=== PATIENT | male | born 1940 | race African-American/Black ===

== ENCOUNTER 2018-05-10 09:54 | Inpatient (IN) ==
--- NOTE | 2018-05-10 11:57 | ED ---
HPI General Chief complaint: Recheck/Abnormal Lab/Rx Stated complaint: sent by doctor/Back pain/abnormal labs Time Seen by Provider: 05/10/18 11:41 History of Present Illness HPI narrative: 78-year-old male with a history of hypertension, hyperlipidemia, chronic kidney disease, CAD, CVA, diabetes, mild dementia presents to the emergency department for evaluation of abnormal results and back pain. The patient is brought by his daughters who provide some of the history due to the patient's history of dementia. The patient states that he went to his doctor's office this morning as he has been having lower back pain radiating to the left for the past week. Denies any injury or trauma to his back. States that he has also been feeling "not like myself" states he has been forgetting things and feeling slightly confused. States that when he went to his doctor's office this morning his blood pressure was very elevated as well as his blood glucose and his urinalysis was abnormal so they sent him here for evaluation. The patient states while sitting in our waiting room about an hour ago he started having weakness in the right leg and decreased sensation in the right leg. States that these are similar symptoms that happened with his prior stroke. He denies any anticoagulation. He denies any chest pain, shortness of breath, abdominal pain, nausea, vomiting, diarrhea, fever, chills, cough or cold symptoms. He admits he has not taken his blood pressure medications this morning and has not taken his insulin for the last week. No other complaints. PCP Bhavya BARROW. Related Data Home Medications Medication Instructions Recorded Confirmed amlodipine 10 mg PO DAILY 05/10/18 05/10/18 atorvastatin 20 mg PO DAILY 05/10/18 05/10/18 clonidine HCl 0.5 tab PO DAILY 05/10/18 05/10/18 insulin glargine [Lantus U-100 40 unit SUBCUT HS 05/10/18 05/10/18 Insulin] loratadine 10 mg PO DAILY 05/10/18 05/10/18 losartan-hydrochlorothiazide 1 tab PO HS 05/10/18 05/10/18 memantine [Namenda] 10 mg PO DAILY 05/10/18 05/10/18 metoprolol tartrate 100 mg PO BID 05/10/18 05/10/18 sitagliptin [Januvia] 100 mg PO DAILY 05/10/18 05/10/18 Allergies Allergy/AdvReac Type Severity Reaction Status Date / Time No Known Allergies Allergy Verified 05/10/18 11:40 Review of Systems ROS: all other systems reviewed are negative PMFSH Social History Social History Second Hand Smoke Exposure: No Smoking Status: Never smoker How Often Do You Have a Drink Containing Alcohol: Never Recent [facility] within the Last 8 Weeks: No Recent Out of Country Travel within the Last 8 Weeks: No Immunization History Tetanus Immunization: Unsure Exam Narrative Exam Narrative: GENERAL: Well-nourished and well-developed male patient in no acute distress who is nontoxic appearing. SKIN: Warm and dry without any obvious rashes or lesions. HEAD: Normocephalic and atraumatic. EYES: No injection, drainage, or hyphema noted. PERRLA. EOMI. ENT: No nasal drainage noted. Oropharynx is clear. NECK: Supple and the trachea is midline. CARDIOVASCULAR: Regular rate and rhythm. RESPIRATORY: Breath sounds are equal bilaterally with no accessory muscle use, wheezing, rhonchi, or crackles. GASTROINTESTINAL: Abdomen is soft, non-tender, and nondistended. MUSCULOSKELETAL: No obvious deformities, swelling, cyanosis, or ecchymosis is present throughout the upper and lower extremities. Distal pulses are 2+ throughout. Patient is unable to lift right leg. When right leg is lifted up he can hold it for a few seconds however it then drops. Strength left leg 5/5. Strength upper extremities 5/5 and equal bilaterally. BACK: Patient reports pain in mid lumbar spine and left paraspinal region however not reproducible on palpation. No obvious deformities, bony point tenderness, or crepitus noted throughout the thoracic and lumbar vertebrae. NEUROLOGICAL: Awake, alert, and oriented to person and place. Patient does not know the year or the president. Normal speech. Cranial nerves are grossly intact. Course Initial Documented Vital Signs Temperature 97.6 F 05/10/18 10:14 Pulse Rate 76 05/10/18 10:14 Respiratory Rate 16 05/10/18 10:14 Blood Pressure 252/119 H 05/10/18 10:14 Pulse Oximetry 98 05/10/18 10:14 Last Documented Vital Signs Temperature 97.6 F 05/10/18 10:14 Pulse Rate 82 05/10/18 19:00 Respiratory Rate 18 05/10/18 19:00 Blood Pressure 135/61 05/10/18 19:00 Pulse Oximetry 99 05/10/18 19:00 NIH Stroke Scale NIH Stroke Scale Level of Consciousness: 0-Alert Orientation Questions: 0-Answers both correct Responds to Commands: 0-Both tasks correct Gaze Eye Movement: 0-Horizontal movement WNL Visual Beckham: 0-No visual field defect Facial Movement: 0-Normal Motor Functions Arm LEFT: 0-No drift Motor Functions Arm RIGHT: 0-No drift Motor Functions Leg LEFT: 0-No drift Motor Functions Leg RIGHT: 3-No effort against gravity Limb Ataxia: 1-Ataxia in one limb Sensory Loss: 2-Severe sensory loss Best Language: 0-Normal Articulation: 0-Normal Extinction or Inattention Sensory: 0-Absent Total: 6 Medical Decision Making MAYANK Attestation MAYANK supervised visit: Yes Attestation: I, Dr. Soares, have reviewed the advance practice practitioner' s documentation and am in agreement, met with the patient face to face, made the diagnosis, and the medical decision making was done by me. *My assessment and Findings: The patient is a 78-year-old -[place] male who was initially evaluated by the mid-level provider. The patient was sent to the emergency department by his primary physician for back pain and hematuria. Patient was noted to be hypertensive by the mid-level provider, the patient apparently had an acute episode of right lower extremity weakness and numbness. The patient was evaluated, was unable to lift the right lower extremity against gravity, had decreased sensation, and was unable to move the right heel against the anterior aspect of the left lyles. Stroke alert was called, the mid- level provider, Dominga Guerrero, discussed the patient with the neurologist, Dr. Higgins. The patient had a stroke alert called, the patient went immediately to CT. CT the brain was negative for hemorrhage. CTA was performed. The patient was noted to be hypertensive, was placed on a Cardene drip. The patient was reevaluated, his symptoms had improved, therefore, no TPA was administered. The patient will be admitted to the on-call medical service. MDM Narrative Medical decision making narrative: 78-year-old male presents to the emergency department initially for evaluation of elevated blood pressure and glucose with back pain. While waiting in our emergency department he began to develop right leg weakness and paresthesias. Stroke alert was called and initiated. I spoke with Dr. Higgins at 11:49 who recommends Cardene drip and states BP must be controlled 180/100 prior to consideration of TPA administration. IV access obtained, labs have been drawn and sent. Patient placed on cardiac telemetry and pulse oximetry monitoring. I stat labs done show kidney function is appropriate for CTA. Head CT negative. Head CTA is negative. CBC unremarkable. I stat shows Cr 1.5, sodium 136, chloride 98, glucose 379. Chest x-ray is negative. I spoke with Dr. Higgins at 13:00 and patient's blood pressure is now 184/80. Patient reassessed and he now has full sensation in right leg and strength is 4/ 5 in right leg, 5/5 in left. His strength and sensation has greatly improved in the right leg however is still not equal to the right. I discussed this with Dr. Higgins who agrees we can offer TPA due to continuation of symptoms. I discussed with the patient and his daughters the option of TPA. I discussed with them the risks of bleeding if TPA administered. I discussed with them the risks of continued or worsening stroke symptoms if TPA not administered. Based on risks and benefits the patient and family have elected not to administer TPA. I spoke with Dr. Pearson durable medical equipment technician who accepts patient to Dr. Edwards service. I discussed the case with my attending physician Dr. Soares who is aware of the patients history, physical examination findings, and treatment plan. Medical Screen Exam Complete: Yes Emergency Medical Condition: Yes Differential Diagnosis Differential Diagnosis: CVA versus TIA versus hypertensive urgency versus intracranial hemorrhage versus electrolyte abnormality Lab Data Result diagrams: 05/10/18 11:39 05/10/18 11:39 Lab Results 05/10/18 05/10/18 05/10/18 Range/Units 11:39 11:39 11:39 WBC 6.5 (4.0-11.0) th/mm3 RBC 5.08 (4.50-5.90) mil/mm3 Hgb 15.3 (13.0-17.0) gm/dL POC Hgb (Calc) 15.3 (13.0-17.0) g/dL Hct 45.7 (39.0-51.0) % POC Hct 45.0 (39-51.0) % MCV 89.8 (80.0-100.0) fL MCH 30.2 (27.0-34.0) pg MCHC 33.6 (32.0-36.0) % RDW 13.3 (11.6-17.2) % Plt Count 229 (150-450) th/mm3 MPV 10.5 (7.0-11.0) fL Neut % (Auto) 71.8 H (16.0-70.0) % Lymph % (Auto) 19.5 (9.0-44.0) % [place] % (Auto) 7.2 (0.0-8.0) % Eos % (Auto) 0.8 (0.0-4.0) % Baso % (Auto) 0.7 (0.0-2.0) % Neut # (Auto) 4.7 (1.8-7.7) th/mm3 Lymph # (Auto) 1.3 (1.0-4.8) th/mm3 [place] # (Auto) 0.5 (0.0-0.9) th/mm3 Eos # (Auto) 0.0 (0.0-0.4) th/mm3 Baso # (Auto) 0.0 (0.0-0.2) th/mm3 WBC Differential . Differential Comment Auto diff final PT 10.1 (9.8-11.6) sec INR 1.0 Ratio APTT 23.2 L (23.4-31.7) sec Fibrinogen 410 H (227-377) mg/dL POC Sodium 136 L (137-144) mmol/L Sodium (136-145) meq/L POC Potassium 4.5 (3.6-5.0) mmol/L Potassium (3.5-5.1) meq/L POC Chloride 98 L (102-111) mmol/L Chloride (98-107) meq/L Carbon Dioxide (21.0-32.0) meq/L Anion Gap (5-15) meq/L POC BUN 20 (5-21) mg/dL BUN (7-18) mg/dL Creatinine (0.60-1.30) mg/dL POC Creatinine 1.5 H (0.6-1.3) mg/dL Estimated GFR (>89) mL/min POC Glucose 379 H (68-110) mg/dL Random Glucose (74-106) mg/dL Calcium (8.5-10.1) mg/dL Total Bilirubin (0.2-1.0) mg/dL AST (15-37) U/L ALT (12-78) U/L Alkaline Phosphatase (45-117) U/L Total Creatine Kinase 296 (39-308) U/L Troponin I 0.05 (0.02-0.05) ng/mL Total Protein (6.4-8.2) g/dL Albumin (3.4-5.0) g/dL Triglycerides (42-150) mg/dL Cholesterol (120-200) mg/dL LDL Cholesterol, Calc (0-99) mg/dL HDL Cholesterol (40.0-60.0) mg/dL Cholesterol/HDL Ratio Ratio Vitamin B12 (193-986) pg/mL Urine Color (Yellw/Straw) Urine Clarity (Clear) Urine pH (5.0-8.5) Ur Specific [place] (1.002-1.035) Urine Protein (Neg-Trace) mg/dL Urine Glucose (UA) (Negative) mg/dL Urine Ketones (Negative) mg/dL Urine Occult Blood (Negative) Urine Nitrate (Negative) Urine Bilirubin (Negative) Urine Urobilinogen (Less than 2) mg/dL Ur Leukocyte Esterase (Negative) Urine RBC (0-3) /hpf Urine WBC (0-5) /hpf Ur Squamous Epith Cells (0-5) /hpf Micro UA Comment Ur Microscopic Review Urine Culture Comments Urine Opiates Screen (Neg) Ur Barbiturates Screen (Neg) Ur Amphetamines Screen (Neg) U Benzodiazepines Scrn (Neg) Urine Cocaine Screen (Neg) U Cannabinoids Screen (Neg) Blood Type Blood Type Recheck Antibody Screen 05/10/18 05/10/18 05/10/18 Range/Units 11:39 11:39 11:39 WBC (4.0-11.0) th/mm3 RBC (4.50-5.90) mil/mm3 Hgb (13.0-17.0) gm/dL POC Hgb (Calc) (13.0-17.0) g/dL Hct (39.0-51.0) % POC Hct (39-51.0) % MCV (80.0-100.0) fL MCH (27.0-34.0) pg MCHC (32.0-36.0) % RDW (11.6-17.2) % Plt Count (150-450) th/mm3 MPV (7.0-11.0) fL Neut % (Auto) (16.0-70.0) % Lymph % (Auto) (9.0-44.0) % [place] % (Auto) (0.0-8.0) % Eos % (Auto) (0.0-4.0) % Baso % (Auto) (0.0-2.0) % Neut # (Auto) (1.8-7.7) th/mm3 Lymph # (Auto) (1.0-4.8) th/mm3 [place] # (Auto) (0.0-0.9) th/mm3 Eos # (Auto) (0.0-0.4) th/mm3 Baso # (Auto) (0.0-0.2) th/mm3 WBC Differential Differential Comment PT (9.8-11.6) sec INR Ratio APTT (23.4-31.7) sec Fibrinogen (227-377) mg/dL POC Sodium (137-144) mmol/L Sodium 136 (136-145) meq/L POC Potassium (3.6-5.0) mmol/L Potassium 4.5 (3.5-5.1) meq/L POC Chloride (102-111) mmol/L Chloride 101 (98-107) meq/L Carbon Dioxide 25.4 (21.0-32.0) meq/L Anion Gap 10 (5-15) meq/L POC BUN (5-21) mg/dL BUN 21 H (7-18) mg/dL Creatinine 1.91 H (0.60-1.30) mg/dL POC Creatinine (0.6-1.3) mg/dL Estimated GFR 42 L (>89) mL/min POC Glucose (68-110) mg/dL Random Glucose 370 H (74-106) mg/dL Calcium 9.3 (8.5-10.1) mg/dL Total Bilirubin 0.4 (0.2-1.0) mg/dL AST 26 (15-37) U/L ALT 20 (12-78) U/L Alkaline Phosphatase 136 H (45-117) U/L Total Creatine Kinase (39-308) U/L Troponin I (0.02-0.05) ng/mL Total Protein 7.6 (6.4-8.2) g/dL Albumin 3.4 (3.4-5.0) g/dL Triglycerides (42-150) mg/dL Cholesterol (120-200) mg/dL LDL Cholesterol, Calc (0-99) mg/dL HDL Cholesterol (40.0-60.0) mg/dL Cholesterol/HDL Ratio Ratio Vitamin B12 973 (193-986) pg/mL Urine Color (Yellw/Straw) Urine Clarity (Clear) Urine pH (5.0-8.5) Ur Specific [place] (1.002-1.035) Urine Protein (Neg-Trace) mg/dL Urine Glucose (UA) (Negative) mg/dL Urine Ketones (Negative) mg/dL Urine Occult Blood (Negative) Urine Nitrate (Negative) Urine Bilirubin (Negative) Urine Urobilinogen (Less than 2) mg/dL Ur Leukocyte Esterase (Negative) Urine RBC (0-3) /hpf Urine WBC (0-5) /hpf Ur Squamous Epith Cells (0-5) /hpf Micro UA Comment Ur Microscopic Review Urine Culture Comments Urine Opiates Screen (Neg) Ur Barbiturates Screen (Neg) Ur Amphetamines Screen (Neg) U Benzodiazepines Scrn (Neg) Urine Cocaine Screen (Neg) U Cannabinoids Screen (Neg) Blood Type B Positive Blood Type Recheck Not needed Antibody Screen Negative 05/10/18 05/10/18 05/10/18 Range/Units 11:52 13:32 13:32 WBC (4.0-11.0) th/mm3 RBC (4.50-5.90) mil/mm3 Hgb (13.0-17.0) gm/dL POC Hgb (Calc) (13.0-17.0) g/dL Hct (39.0-51.0) % POC Hct (39-51.0) % MCV (80.0-100.0) fL MCH (27.0-34.0) pg MCHC (32.0-36.0) % RDW (11.6-17.2) % Plt Count (150-450) th/mm3 MPV (7.0-11.0) fL Neut % (Auto) (16.0-70.0) % Lymph % (Auto) (9.0-44.0) % [place] % (Auto) (0.0-8.0) % Eos % (Auto) (0.0-4.0) % Baso % (Auto) (0.0-2.0) % Neut # (Auto) (1.8-7.7) th/mm3 Lymph # (Auto) (1.0-4.8) th/mm3 [place] # (Auto) (0.0-0.9) th/mm3 Eos # (Auto) (0.0-0.4) th/mm3 Baso # (Auto) (0.0-0.2) th/mm3 WBC Differential Differential Comment PT (9.8-11.6) sec INR Ratio APTT (23.4-31.7) sec Fibrinogen (227-377) mg/dL POC Sodium (137-144) mmol/L Sodium (136-145) meq/L POC Potassium (3.6-5.0) mmol/L Potassium (3.5-5.1) meq/L POC Chloride (102-111) mmol/L Chloride (98-107) meq/L Carbon Dioxide (21.0-32.0) meq/L Anion Gap (5-15) meq/L POC BUN (5-21) mg/dL BUN (7-18) mg/dL Creatinine (0.60-1.30) mg/dL POC Creatinine (0.6-1.3) mg/dL Estimated GFR (>89) mL/min POC Glucose 350 H (68-110) mg/dL Random Glucose (74-106) mg/dL Calcium (8.5-10.1) mg/dL Total Bilirubin (0.2-1.0) mg/dL AST (15-37) U/L ALT (12-78) U/L Alkaline Phosphatase (45-117) U/L Total Creatine Kinase (39-308) U/L Troponin I (0.02-0.05) ng/mL Total Protein (6.4-8.2) g/dL Albumin (3.4-5.0) g/dL Triglycerides (42-150) mg/dL Cholesterol (120-200) mg/dL LDL Cholesterol, Calc (0-99) mg/dL HDL Cholesterol (40.0-60.0) mg/dL Cholesterol/HDL Ratio Ratio Vitamin B12 (193-986) pg/mL Urine Color Straw (Yellw/Straw) Urine Clarity Clear (Clear) Urine pH 7.0 (5.0-8.5) Ur Specific [place] 1.029 (1.002-1.035) Urine Protein 500 or greater (Neg-Trace) mg/dL Urine Glucose (UA) 500 or greater (Negative) mg/dL Urine Ketones Trace H (Negative) mg/dL Urine Occult Blood Small H (Negative) Urine Nitrate Negative (Negative) Urine Bilirubin Negative (Negative) Urine Urobilinogen Less than 2 (Less than 2) mg/dL Ur Leukocyte Esterase Negative (Negative) Urine RBC Less than 1 (0-3) /hpf Urine WBC 1 (0-5) /hpf Ur Squamous Epith Cells <1 (0-5) /hpf Micro UA Comment Culture not ind Ur Microscopic Review Not Reportable Urine Culture Comments Culture not ind Urine Opiates Screen Neg (Neg) Ur Barbiturates Screen Neg (Neg) Ur Amphetamines Screen Neg (Neg) U Benzodiazepines Scrn Neg (Neg) Urine Cocaine Screen Neg (Neg) U Cannabinoids Screen Neg (Neg) Blood Type Blood Type Recheck Antibody Screen 05/10/18 05/10/18 05/11/18 Range/Units 18:22 22:54 03:40 WBC (4.0-11.0) th/mm3 RBC (4.50-5.90) mil/mm3 Hgb (13.0-17.0) gm/dL POC Hgb (Calc) (13.0-17.0) g/dL Hct (39.0-51.0) % POC Hct (39-51.0) % MCV (80.0-100.0) fL MCH (27.0-34.0) pg MCHC (32.0-36.0) % RDW (11.6-17.2) % Plt Count (150-450) th/mm3 MPV (7.0-11.0) fL Neut % (Auto) (16.0-70.0) % Lymph % (Auto) (9.0-44.0) % [place] % (Auto) (0.0-8.0) % Eos % (Auto) (0.0-4.0) % Baso % (Auto) (0.0-2.0) % Neut # (Auto) (1.8-7.7) th/mm3 Lymph # (Auto) (1.0-4.8) th/mm3 [place] # (Auto) (0.0-0.9) th/mm3 Eos # (Auto) (0.0-0.4) th/mm3 Baso # (Auto) (0.0-0.2) th/mm3 WBC Differential Differential Comment PT (9.8-11.6) sec INR Ratio APTT (23.4-31.7) sec Fibrinogen (227-377) mg/dL POC Sodium (137-144) mmol/L Sodium (136-145) meq/L POC Potassium (3.6-5.0) mmol/L Potassium (3.5-5.1) meq/L POC Chloride (102-111) mmol/L Chloride (98-107) meq/L Carbon Dioxide (21.0-32.0) meq/L Anion Gap (5-15) meq/L POC BUN (5-21) mg/dL BUN (7-18) mg/dL Creatinine (0.60-1.30) mg/dL POC Creatinine (0.6-1.3) mg/dL Estimated GFR (>89) mL/min POC Glucose 262 H 287 H (68-110) mg/dL Random Glucose (74-106) mg/dL Calcium (8.5-10.1) mg/dL Total Bilirubin (0.2-1.0) mg/dL AST (15-37) U/L ALT (12-78) U/L Alkaline Phosphatase (45-117) U/L Total Creatine Kinase (39-308) U/L Troponin I (0.02-0.05) ng/mL Total Protein (6.4-8.2) g/dL Albumin (3.4-5.0) g/dL Triglycerides 285 H (42-150) mg/dL Cholesterol 346 H (120-200) mg/dL LDL Cholesterol, Calc 247 H (0-99) mg/dL HDL Cholesterol 42.0 (40.0-60.0) mg/dL Cholesterol/HDL Ratio 8.23 Ratio Vitamin B12 (193-986) pg/mL Urine Color (Yellw/Straw) Urine Clarity (Clear) Urine pH (5.0-8.5) Ur Specific [place] (1.002-1.035) Urine Protein (Neg-Trace) mg/dL Urine Glucose (UA) (Negative) mg/dL Urine Ketones (Negative) mg/dL Urine Occult Blood (Negative) Urine Nitrate (Negative) Urine Bilirubin (Negative) Urine Urobilinogen (Less than 2) mg/dL Ur Leukocyte Esterase (Negative) Urine RBC (0-3) /hpf Urine WBC (0-5) /hpf Ur Squamous Epith Cells (0-5) /hpf Micro UA Comment Ur Microscopic Review Urine Culture Comments Urine Opiates Screen (Neg) Ur Barbiturates Screen (Neg) Ur Amphetamines Screen (Neg) U Benzodiazepines Scrn (Neg) Urine Cocaine Screen (Neg) U Cannabinoids Screen (Neg) Blood Type Blood Type Recheck Antibody Screen Imaging Data Radiologist's impression: Chest X-Ray 05/10/18 11:53 CONCLUSION: No acute disease Head CT 05/10/18 11:53 CONCLUSION: Negative CT Head non contrast. Report was called by [Clayton Soares at 1210 ] Head CTA 05/10/18 12:07 CONCLUSION: No acute [place] vascular findings Report was called by [Clayton Guerrero ]at 1228 Neck CTA 05/10/18 12:07 CONCLUSION: Mild asymmetrically left-sided carotid stenosis. Head MRI 05/10/18 16:00 CONCLUSION: 1. Cerebral atrophy and chronic ischemic small vessel vasculopathy. 2. Right frontal and ethmoid sinus disease. 3. No acute intracranial abnormality. Discharge Plan Discharge Disposition Patient Disposition: 30 Still Patient Discharge Details Diagnosis: Acute CVA (cerebrovascular accident), Hypertensive urgency Physicians Team ED Provider: Jose Ramon Soares ED Midlevel Provider: Dominga Guerrero Primary Care Provider: UNKNOWN, Attending Provider: Hollis Edwards Other Providers: Aki Higgins ; [facility],Insurance Status ED Status: Admitted Patient
--- NOTE | 2018-05-10 12:12 | CT ---
EXAM DATE: 05/10/2018 12:06 PM EST AGE/SEX: 78 years / Male INDICATIONS: Stroke alert, right leg weakness. History of stroke. CLINICAL DATA: This is the patient's initial encounter. Patient reports that signs and symptoms have been present for 1 day and indicates a pain score of Nonresponsive. MEDICAL/SURGICAL HISTORY: Non-responsive. Non-responsive. RADIATION DOSE: 48.25 CTDI (mGy) COMPARISON: [facility], CT BRAIN W/O CONTRAST, 10/11/2015. . TECHNIQUE: CT of the head without contrast. Using automated exposure control and adjustment of the mA and/or kV according to patient size, radiation dose was kept as low as reasonably achievable to ob tain optimal diagnostic quality images. DICOM format image data is available electronically for revi ew and comparison. FINDINGS: Cerebrum: The ventricles are normal for age. No evidence of midline shift, mass lesion, hemorrhage or acute infarction. No extraaxial fluid collections are seen. Posterior Fossa: The cerebellum and brainstem are intact. The 4th ventricle is midline. The cerebe llopontine angle is unremarkable. Extracranial: The visualized portion of the orbits is intact. Skull: The calvaria is intact. No evidence of skull fracture. CONCLUSION: Negative CT Head non contrast. Report was called by [Clayton to Fany at 1210 ] Electronically signed by: Pradeep Arnold MD 05/10/2018 12:11 PM EST
[2018-05-10 12:19] LABS: Baso % (Auto) 0.7 % (0.0-2.0); Eos % (Auto) 0.8 % (0.0-4.0); Hematocrit 45.7 % (39.0-51.0); Hemoglobin 15.3 gm/dL (13.0-17.0); Lymph # (Auto) 1.3 th/mm3 (1.0-4.8); Lymph % (Auto) 19.5 % (9.0-44.0); Mean Corpuscular HGB Conc 33.6 % (32.0-36.0); Mean Corpuscular Hemoglobin 30.2 pg (27.0-34.0); Mean Corpuscular Volume 89.8 fL (80.0-100.0); Mean Platelet Volume 10.5 fL (7.0-11.0); Mono # (Auto) 0.5 th/mm3 (0.0-0.9); Mono % (Auto) 7.2 % (0.0-8.0); Neut # (Auto) 4.7 th/mm3 (1.8-7.7); Neut % (Auto) 71.8 % (16.0-70.0); Platelet Count 229 th/mm3 (150-450); Red Blood Count 5.08 mil/mm3 (4.50-5.90); Red Cell Distribution Width 13.3 % (11.6-17.2); White Blood Count 6.5 th/mm3 (4.0-11.0)
[2018-05-10 12:28] LABS: Activated Partial Thrombo Time 23.2 sec (23.4-31.7); Prothrombin Time 10.1 sec (9.8-11.6)
--- NOTE | 2018-05-10 12:31 | CT ---
EXAM DATE: 05/10/2018 12:25 PM EST AGE/SEX: 78 years / Male INDICATIONS: Stroke alert, right leg weakness. History of stroke. CLINICAL DATA: This is the patient's initial encounter. Patient reports that signs and symptoms have been present for 1 day and indicates a pain score of 0/10. MEDICAL/SURGICAL HISTORY: Non-responsive. Non-responsive. RADIATION DOSE: 29.19 CTDI (mGy) ; Combined studies COMPARISON: [facility] [place], CT HEAD W/O CONTRAST, 05/10/2018. . TECHNIQUE: Volumetric scanning was performed using a multi-row detector CT scanner during bolus infu moustapha of 75 ml Visipaque 320 (iodixanol) nonionic water-soluble contrast as a cumulative dose for mul tiple exams. The data was post processed with a variety of visualization algorithms including full volume maximum intensity projection, multi-planar sliding thin slab reformation, curved planar reform ation, and surface rendering techniques. Using automated exposure control and adjustment of the mA a nd/or kV according to patient size, radiation dose was kept as low as reasonably achievable to obtain optimal diagnostic quality images. DICOM format image data is available electronically for review a nd comparison. FINDINGS: There is excellent visualization of the major intracranial arteries out to the second-order branch ve ssels. There is no evidence for aneurysm, vessel truncation or stenosis, and no evidence for vascula r malformation. CONCLUSION: No acute [place] vascular findings Report was called by [Clayton to Dominga Guerrero ]at 1228 Electronically signed by: Pradeep Arnold MD 05/10/2018 12:29 PM EST
[2018-05-10] MEDS: niCARdipine Inj 25 MG in Sodium Chlor 0.9% Inj 240 ML IV.CONT PRN ×2 (12:41→19:02)
[2018-05-10 12:42] LABS: Troponin I 0.05 ng/mL (0.02-0.05)
[2018-05-10] MEDS: Sod Chloride 0.9% Inj 1,000 ML IV.CONT SCH ×2 (12:42→18:21)
--- NOTE | 2018-05-10 12:59 | CT ---
EXAM DATE: 05/10/2018 12:44 PM EST AGE/SEX: 78 years / Male INDICATIONS: Stroke alert, right leg weakness. History of stroke. CLINICAL DATA: This is the patient's initial encounter. Patient reports that signs and symptoms have been present for 1 day and indicates a pain score of Nonresponsive. MEDICAL/SURGICAL HISTORY: Non-responsive. Non-responsive. RADIATION DOSE: 29.19 CTDI (mGy) ; Combined studies COMPARISON: . TECHNIQUE: Volumetric scanning was performed using a multirow detector CT scanner during bolus infus ion of 75 ml Visipaque 320 (iodixanol) nonionic water-soluble contrast as a cumulative dose for mult iple exams. The data was postprocessed with a variety of visualization algorithms including full-vo lume maximum intensity projection, multiplanar sliding thin-slab reformation, curved-planar reformati on, and surface-rendering techniques. Using automated exposure control and adjustment of the mA and/ or kV according to patient size, radiation dose was kept as low as reasonably achievable to obtain op timal diagnostic quality images. DICOM format image data is available electronically for review and comparison. Percent stenosis is calculated using the diameter of the stenotic region over the diameter of the nor mal distal internal carotid artery. FINDINGS: Aortic Arch: There is a three-vessel origin of the great vessels from the aorta. No evidence of ost ial narrowing Right Carotid: Slight eccentric plaquing in the distal common carotid artery and proximal ICA withou t significant associated luminal compromise. Left Carotid: Mild eccentric stenotic narrowing at the origin of the left internal carotid artery pr oducing about 30% luminal stenosis beyond which the vessel is notable for slight poststenotic dilatat ion and thereafter normal and widely patent to the skull base. Vertebrals: The vertebral arteries are patent bilaterally, left side slightly dominant. No stenotic lesions are seen. CONCLUSION: Mild asymmetrically left-sided carotid stenosis. Electronically signed by: Pradeep Arnold MD 05/10/2018 12:57 PM EST
--- NOTE | 2018-05-10 13:35 | XR ---
EXAM DATE: 05/10/2018 1:33 PM EST AGE/SEX: 78 years / Male INDICATIONS: Stroke Alert. Short of breath, weakness CLINICAL DATA: This is the patient's initial encounter. Patient reports that signs and symptoms have been present for 1 day and indicates a pain score of Nonresponsive. MEDICAL/SURGICAL HISTORY: Non-responsive. Non-responsive. COMPARISON: [facility] [place], CHEST SINGLE AP, 06/09/2011. . FINDINGS: A single AP view of the chest demonstrates the lungs to be symmetrically aerated without evidence of mass, infiltrate or effusion. The cardiomediastinal contours are unremarkable. Osseous structures a re intact. CONCLUSION: No acute disease Electronically signed by: Pradeep Arnold MD 05/10/2018 1:34 PM EST
[2018-05-10 14:04] LABS: Amphetamine Screen,Urine Neg (Neg); Barbiturate Screen,Urine Neg (Neg); Cannabinoid Screen,Urine Neg (Neg); Cocaine Screen,Urine Neg (Neg)
[2018-05-10 14:05] LABS: Opiate Screen,Urine Neg (Neg)
[2018-05-10] MEDS ORDERED: Aspirin 325 MG Tablet PO ONE (14:09)
[2018-05-10 14:13] LABS: Bilirubin,Urine Negative (Negative); Clarity,Urine Clear (Clear); Color,Urine Straw (Yellw/Straw); Glucose,Urine (UA) 500 or Greater mg/dL (Negative); Leukocyte Esterase,Urine Negative (Negative); Nitrite,Urine Negative (Negative); Specific Gravity,Urine 1.029 (1.002-1.035); Squamous Epithelial Cell,Urine <1 /hpf (0-5)
[2018-05-10 14:29] LABS: Albumin 3.4 g/dL (3.4-5.0); Anion Gap 10 meq/L (5-15); Aspartate Aminotransferase 26 U/L (15-37); Blood Urea Nitrogen 21 mg/dL (7-18); Calcium 9.3 mg/dL (8.5-10.1); Carbon Dioxide 25.4 meq/L (21.0-32.0); Chloride 101 meq/L (98-107); Glomerular Filtration Rate 42 mL/min (>89); Glucose,Random 370 mg/dL (74-106); Potassium 4.5 meq/L (3.5-5.1); Sodium 136 meq/L (136-145)
[2018-05-10 14:30] LABS: Alanine Aminotransferase 20 U/L (12-78)
[2018-05-10 14:32] LABS: Alkaline Phosphatase 136 U/L (45-117); Total Protein 7.6 g/dL (6.4-8.2)
--- NOTE | 2018-05-10 15:52 | P.HPFP ---
History of Present Illness Primary Care Physician: UNKNOWN <Hollis Edwards R - 05/12/18 16:29> UNKNOWN <Tom Petersen - 05/10/18 15:52> History of Present Illness: Patient 78-year-old male past history of hypertension, diabetes, CVA, CKD, hyperlipidemia, dementia who presented to the ED for back pain and microscopic hematuria. This is reported to have been determined in his primary care's office. Interviewing patient he denies back pain. Reports he has never seen blood in his urine. Patient denies dysuria, increased frequency, loss of urine, cuts patient, diarrhea, dark or red stools, nausea, vomiting, fever, chills, don pain, chest pain, shortness of breath, lightheadedness, dizziness, jaw pain, numbness or tingling. He notes that while in the waiting room he noted weakness in his right leg. He states this has happened in the past with his previous stroke approximate 5-6 years ago. After his last stroke he regained approximate 75% strength in his leg, however he reports his leg is much weaker at this time. He denies any recent falls or trauma. Denies any other weakness, changes in vision, headache , slurred speech, decrease in sensation, difficulty swallowing. Is not taking any of his home medications Past medical: HTN Diabetes - was on insulin in the past CVA CKD HLD Dementia Past surgical: denies surgical history Social: Prior history of heavy drinking, quit drinking 15-20 years ago About 1 pack per week smoking history, stopped about 10 years ago Denies any other drug use <Tom Petersen - 05/10/18 18:28> - Diagnosis (1) Acute CVA (cerebrovascular accident) (2) Hypertensive urgency (3) Microscopic hematuria (4) Diabetes (5) Hypertension (6) Cognitive impairment <Tom Petersen - 05/10/18 18:06> (1) TIA (transient ischemic attack) (2) Hypertensive urgency (3) Microscopic hematuria (4) Diabetes (5) Hypertension (6) Cognitive impairment <Hollis Edwards - 05/12/18 16:29> Inpatient Certification: I certify that the inpatient services were ordered in accordance with Medicare regulations governing the order. This includes certification that hospital inpatient services are reasonable and necessary and in the case of services not specified as inpatient-only under 42 CFR 419.22(n), that they are appropriately provided as inpatient services in accordance to with the 2-midnight benchmark under 43 CFR 412.3(e) <Hollis Edwards Eros 05/12/18 16:29> I certify that the inpatient services were ordered in accordance with Medicare regulations governing the order. This includes certification that hospital inpatient services are reasonable and necessary and in the case of services not specified as inpatient-only under 42 CFR 419.22(n), that they are appropriately provided as inpatient services in accordance to with the 2-midnight benchmark under 43 CFR 412.3(e) <Tom Petersen 05/10/18 15:52> Review of Systems All other systems reviewed negative except as stated in HPI <Tom Petersen 05/10/18 18:28> PMFSH - History History Provided By: Patient, Family Member <Tom Petersen 05/10/18 15:52 > - Medical History Medical History: Medical History (Last Updated 05/10/18 @ 10:24 by Jennifer Mcdaniel) Diabetes Hypertension Kidney disease <ZacknedraNatasha lamparrish Cooney 05/12/18 16:29> Medical History (Last Updated 05/10/18 @ 10:24 by Jennifer Mcdaniel) Diabetes Hypertension Kidney disease <Tom Petersen 05/10/18 15:52> - Surgical History Surgical History: Surgical History (Last Updated 05/10/18 @ 11:44 by Rand Nevarez) H/O heart artery stent Hx of hernia repair <Hollis Edwards 05/12/18 16:29> Surgical History (Last Updated 05/10/18 @ 11:44 by Rand Nevarez) H/O heart artery stent Hx of hernia repair <Tom Petersen 05/10/18 15:52> - Tobacco History Second Hand Smoke Exposure: No <Tom Petersen 05/10/18 15:52> Smoking Status: Never smoker <Tom Petersen 05/10/18 15:52> - Alcohol History How Often Do You Have a Drink Containing Alcohol: Never <Tom Petresen - 15:52> - Travel History Recent Travel in the [facility] Within the Last 8 Weeks: No <Tom Petersen - 11/27 /18 15:52> Recent Travel Out of the Country Within the Last 8 Weeks: No <Tom Petersen A - 05/10/18 15:52> - Immunization History Tetanus Immunization: Unsure <Tom Petersen A - 05/10/18 15:52> Medications and Allergies Allergies Allergy/AdvReac Type Severity Reaction Status Date / Time No Known Allergies Allergy Verified 05/10/18 11:40 <Hollis Edwards - 05/12/18 16:29> Home Medications Medication Instructions Recorded Confirmed Type amlodipine 10 mg PO DAILY 05/10/18 05/10/18 History atorvastatin 20 mg PO DAILY 05/10/18 05/10/18 History clonidine HCl 0.5 tab PO DAILY 05/10/18 05/10/18 History insulin glargine [Lantus U-100 40 unit SUBCUT HS 05/10/18 05/10/18 History Insulin] loratadine 10 mg PO DAILY 05/10/18 05/10/18 History losartan-hydrochlorothiazide 1 tab PO HS 05/10/18 05/10/18 History memantine [Namenda] 10 mg PO DAILY 05/10/18 05/10/18 History metoprolol tartrate 100 mg PO BID 05/10/18 05/10/18 History sitagliptin [Januvia] 100 mg PO DAILY 05/10/18 05/10/18 History <Hollis Edwards - 05/12/18 16:29> Active Medications: Active Medications Amlodipine Besylate (Norvasc) 10 mg PO DAILY [facility] Last Admin: 05/12/18 08:35 Dose: 10 mg Aspirin (Aspirin) 325 mg PO DAILY [facility] Last Admin: 05/12/18 08:35 Dose: 325 mg Atorvastatin Calcium (Lipitor) 40 mg PO HS [facility] Last Admin: 05/11/18 21:03 Dose: 40 mg Clonidine HCl (Catapres) 0.05 mg PO DAILY [facility] Last Admin: 05/12/18 08:36 Dose: 0.05 mg Dextrose (D50w Vial) 50 ml IV.PUSH UNSCH PRN PRN Reason: PER HYPOGLYCEMIA PROTOCOL Enalaprilat (Vasotec Inj) 1.25 mg IV.PUSH Q4H PRN PRN Reason: SEE LABEL COMMENTS Enoxaparin Sodium (Lovenox Inj) 30 mg SQ Q24H [facility] Last Admin: 05/11/18 18:01 Dose: 30 mg Glucagon (Glucagon Inj) 1 mg OTHER PRN PRN PRN Reason: for Hypoglycemia Protocol Hydrochlorothiazide (Microzide) 12.5 mg PO HS [facility] Last Admin: 05/11/18 21:03 Dose: 12.5 mg Sodium Chloride (Ns Inj) 1,000 mls @ 100 mls/hr IV.CONT .Q10H [facility] Last Infusion: 05/12/18 08:39 Dose: 100 mls/hr Insulin Aspart (Novolog Insulin [employer] Sugar Inj) 0 unit SQ [facility]; Protocol Last Admin: 05/12/18 08:34 Dose: Not Given Insulin Detemir (Levemir Inj) 40 unit SQ HS [facility] Last Admin: 05/11/18 21:06 Dose: 40 unit Loratadine (Claritin) 10 mg PO DAILY [facility] Last Admin: 05/12/18 08:35 Dose: 10 mg Losartan Potassium (Cozaar) 50 mg PO HS [facility] Last Admin: 05/11/18 21:02 Dose: 50 mg Memantine (Namenda) 10 mg PO DAILY [facility] Last Admin: 05/12/18 08:35 Dose: 10 mg Metoprolol Tartrate (Lopressor) 100 mg PO BID [facility] Last Admin: 05/12/18 08:36 Dose: 100 mg Miscellaneous (Pill Splitter) 1 each OTHER UNSCH PRN PRN Reason: PILL SPLITTER Sodium Chloride (Ns Flush) 2 ml IV.FLUSH BID [facility] Last Admin: 05/12/18 08:36 Dose: Not Given Sodium Chloride (Ns Flush) 2 ml IV.FLUSH PRN PRN PRN Reason: FLUSH AFTER USING IV ACCESS <Hollis Edwards - 05/12/18 16:29> Active Medications Sodium Chloride (Ns Inj) 1,000 mls @ 70 mls/hr IV.CONT .[id number] [facility] Last Admin: 05/10/18 12:42 Dose: 70 mls/hr Nicardipine HCl 25 mg/ Sodium (Chloride) 250 mls @ 50 mls/hr IV.CONT TITRATE PRN; Protocol PRN Reason: Per Protocol Last Admin: 05/10/18 12:41 Dose: 5 mg/hr, 50 mls/hr <Tom Petersen - 05/10/18 15:52> Exam Vital signs: Vital Signs 05/11/18 17:46 05/11/18 20:00 05/12/18 00:00 Temperature 98.6 F 98.7 F Pulse Rate 66 61 Respiratory Rate 17 17 Blood Pressure 172/76 H 163/71 H Pulse Oximetry 98 98 98 05/12/18 03:28 05/12/18 08:00 05/12/18 09:41 Temperature 97.8 F 97.9 F Pulse Rate 65 66 Respiratory Rate 16 18 Blood Pressure 164/72 H 130/63 Pulse Oximetry 99 99 Intake & Output 05/11/18 05/12/18 05/12/18 18:59 06:59 18:59 Intake Total 1000 / 1000 1120 / 1120 300 / 300 Balance 1000 / 1000 1120 / 1120 300 / 300 Weight 66.4 kg 67.2 kg Intake: IV 1000 / 1000 1000 / 1000 300 / 300 NS Inj 1,000 ML @ 100 mls/hr IV 1000 / 1000 1000 / 1000 300 / 300 .CONT .Q10H GABRIEL Rx#:[id number] Oral 120 / 120 Other: # Voids 2 Date of Last Bowel Movement 05/09/18 05/09/18 # Bowel Movements 0 Weight On Admission 66.4 kg <Hollis Edwards R - 05/12/18 16:29> Vital Signs 05/10/18 10:14 05/10/18 11:46 05/10/18 11:50 Temperature 97.6 F Pulse Rate 76 84 Respiratory Rate 16 18 Blood Pressure 252/119 H 237/104 H Pulse Oximetry 98 98 97 05/10/18 11:53 05/10/18 15:00 Temperature Pulse Rate 76 Respiratory Rate 18 Blood Pressure 147/65 H Pulse Oximetry 100 100 Intake & Output 05/09/18 05/10/18 05/10/18 18:59 06:59 18:59 Weight 65.771 kg <Tom Petersen - 05/10/18 15:52> Narrative: GENERAL: Laying in bed, no acute distress SKIN: Warm and dry. HEAD: Atraumatic. Normocephalic. EYES: Pupils equal and round. No scleral icterus. No injection or drainage. ENT: No nasal bleeding or discharge. Mucous membranes pink and moist. NECK: Trachea midline. No JVD. CARDIOVASCULAR: Regular rate and rhythm. 2/6 murmur. RESPIRATORY: No accessory muscle use. Clear to auscultation. Breath sounds equal bilaterally. GASTROINTESTINAL: Abdomen soft, non-tender, nondistended. Hepatic and splenic margins not palpable. MUSCULOSKELETAL: Extremities without clubbing, cyanosis, or edema. No obvious deformities. NEUROLOGICAL: Awake and alert. CN II through XII intact. Motor grossly within normal limits. Five out of 5 muscle strength in the arms. 5/5 strength in left leg, 3/5 in right leg. Normal speech. Rapid alternating movements symmetric. Finger to nose normal. <Tom Petersen - 05/10/18 18:28> Results - Labs Result diagrams: 05/12/18 04:26 05/12/18 04:26 <Hollis Edwards - 05/12/18 16:29> Abnormal lab results 05/11/18 05/11/18 05/11/18 Range/Units 03:40 17:34 19:58 BUN (7-18) mg/dL Creatinine (0.60-1.30) mg/dL Estimated GFR (>89) mL/min POC Glucose 417 H 213 H (68-110) mg/dl Hemoglobin A1c 13.9 H (4.3-6.0) % 05/12/18 Range/Units 04:26 BUN 30 H (7-18) mg/dL Creatinine 2.02 H (0.60-1.30) mg/dL Estimated GFR 39 L (>89) mL/min POC Glucose (68-110) mg/dl Hemoglobin A1c (4.3-6.0) % Short CBC 05/12/18 Range/Units 04:26 WBC 8.9 (4.0-11.0) th/mm3 Hgb 15.4 (13.0-17.0) gm/dL Hct 46.4 (39.0-51.0) % Plt Count 321 D (150-450) th/mm3 BMP 05/12/18 04:26 Sodium 137 Potassium 3.8 Chloride 102 Carbon Dioxide 28.1 BUN 30 H Creatinine 2.02 H Calcium 9.3 <Hollis Edwards R - 05/12/18 16:29> Abnormal lab results 05/10/18 05/10/18 05/10/18 Range/Units 11:39 11:39 11:39 Neut % (Auto) 71.8 H (16.0-70.0) % APTT 23.2 L (23.4-31.7) sec Fibrinogen 410 H (227-377) mg/dL POC Sodium 136 L (137-144) mmol/L POC Chloride 98 L (102-111) mmol/L BUN (7-18) mg/dL Creatinine (0.60-1.30) mg/dL POC Creatinine 1.5 H (0.6-1.3) mg/dL Estimated GFR (>89) mL/min POC Glucose 379 H (68-110) mg/dL Random Glucose (74-106) mg/dL Alkaline Phosphatase (45-117) U/L Urine Ketones (Negative) mg/dL Urine Occult Blood (Negative) 05/10/18 05/10/18 05/10/18 Range/Units 11:39 11:52 13:32 Neut % (Auto) (16.0-70.0) % APTT (23.4-31.7) sec Fibrinogen (227-377) mg/dL POC Sodium (137-144) mmol/L POC Chloride (102-111) mmol/L BUN 21 H (7-18) mg/dL Creatinine 1.91 H (0.60-1.30) mg/dL POC Creatinine (0.6-1.3) mg/dL Estimated GFR 42 L (>89) mL/min POC Glucose 350 H (68-110) mg/dL Random Glucose 370 H (74-106) mg/dL Alkaline Phosphatase 136 H (45-117) U/L Urine Ketones Trace H (Negative) mg/dL Urine Occult Blood Small H (Negative) Short CBC 05/10/18 Range/Units 11:39 WBC 6.5 (4.0-11.0) th/mm3 Hgb 15.3 (13.0-17.0) gm/dL Hct 45.7 (39.0-51.0) % Plt Count 229 (150-450) th/mm3 BMP 05/10/18 11:39 Sodium 136 Potassium 4.5 Chloride 101 Carbon Dioxide 25.4 BUN 21 H Creatinine 1.91 H Calcium 9.3 Cardiac Enzymes 05/10/18 Range/Units 11:39 Total Creatine Kinase 296 (39-308) U/L Troponin I 0.05 (0.02-0.05) ng/mL Liver Function 05/10/18 Range/Units 11:39 Total Bilirubin 0.4 (0.2-1.0) mg/dL AST 26 (15-37) U/L ALT 20 (12-78) U/L Alkaline Phosphatase 136 H (45-117) U/L Albumin 3.4 (3.4-5.0) g/dL Urine 05/10/18 Range/Units 13:32 Urine Color Straw (Yellw/Straw) Urine Clarity Clear (Clear) Urine pH 7.0 (5.0-8.5) Ur Specific Monitor 1.029 (1.002-1.035) Urine Protein 500 or greater (Neg-Trace) mg/dL Urine Glucose (UA) 500 or greater (Negative) mg/dL <Tom Petersen 05/10/18 15:52> - Imaging Impressions Chest X-Ray 05/10/18 11:53 CONCLUSION: No acute disease Head CT 05/10/18 11:53 CONCLUSION: Negative CT Head non contrast. Report was called by [Clayton Soares at 1210 ] Head CTA 05/10/18 12:07 CONCLUSION: No acute [place] vascular findings Report was called by [Clayton Guerrero ]at 1228 Neck CTA 05/10/18 12:07 CONCLUSION: Mild asymmetrically left-sided carotid stenosis. <Tom Petersen 05/10/18 15:52> Zeeshan VTE Risk Assessment Zeeshan VTE Risk Assessment: Moderate/High Risk (score >= 2) <Tom Petersen 05/10/18 18:28> Zeeshan Risk Assessment Model: Point Value = 1 Point Value = 2 Point Value = 3 Point Value = 5 Age 41-60 Minor surgery BMI > 25 kg/m2 Swollen legs Varicose veins or History of unexplained or recurrent spontaneous Oral contraceptives or hormone replacement Sepsis (< 1 month) Serious lung disease, including pneumonia (< 1 month) Abnormal pulmonary function Acute myocardial infarction Congestive heart failure (< 1 month) History of inflammatory bowel disease Medical patient at bed rest Age 61-74 Arthroscopic surgery Major open surgery (> 45 min) Laparoscopic surgery (> 45 min) Malignancy Confined to bed (> 72 hours) Immobilizing plaster cast Central venous access Age >= 75 History of VTE Family history of VTE Factor V Leiden Prothrombin [id number] Lupus anticoagulant Anticardiolipin antibodies Elevated serum homocysteine Heparin-induced thrombocytopenia Other congenital or acquired thrombophilia Stroke (< 1 month) Elective arthroplasty Hip, pelvis, or leg fracture Acute spinal cord injury (< 1 month) <Hollis Edwards R - 05/12/18 16:29> Point Value = 1 Point Value = 2 Point Value = 3 Point Value = 5 Age 41-60 Minor surgery BMI > 25 kg/m2 Swollen legs Varicose veins or History of unexplained or recurrent spontaneous Oral contraceptives or hormone replacement Sepsis (< 1 month) Serious lung disease, including pneumonia (< 1 month) Abnormal pulmonary function Acute myocardial infarction Congestive heart failure (< 1 month) History of inflammatory bowel disease Medical patient at bed rest Age 61-74 Arthroscopic surgery Major open surgery (> 45 min) Laparoscopic surgery (> 45 min) Malignancy Confined to bed (> 72 hours) Immobilizing plaster cast Central venous access Age >= 75 History of VTE Family history of VTE Factor V Leiden Prothrombin [id number] Lupus anticoagulant Anticardiolipin antibodies Elevated serum homocysteine Heparin-induced thrombocytopenia Other congenital or acquired thrombophilia Stroke (< 1 month) Elective arthroplasty Hip, pelvis, or leg fracture Acute spinal cord injury (< 1 month) <Tom Petersen - 05/10/18 15:52> Prophylaxis Regimen: Total Risk Factor Score Risk Level Prophylaxis Regimen 0-1 Low Early ambulation 2 Moderate Order ONE of the following: *Sequential Compression Device (SCD) *Heparin 5000 units SQ BID 3-4 Higher Order ONE of the following medications: *Heparin 5000 units SQ TID *Enoxaparin/Lovenox 40 mg SQ daily (WT < 150 kg, CrCl > 30 mL/min) *Enoxaparin/Lovenox 30 mg SQ daily (WT < 150 kg, CrCl > 10-29 mL/min) *Enoxaparin/Lovenox 30 mg SQ BID (WT < 150 kg, CrCl > 30 mL/min) AND/OR *Sequential Compression Device (SCD) 5 or more Highest Order ONE of the following medications: *Heparin 5000 units SQ TID (Preferred with Epidurals) *Enoxaparin/Lovenox 40 mg SQ daily (WT < 150 kg, CrCl > 30 mL/min) *Enoxaparin/Lovenox 30 mg SQ daily (WT < 150 kg, CrCl > 10-29 mL/min) *Enoxaparin/Lovenox 30 mg SQ BID (WT < 150 kg, CrCl > 30 mL/min) AND *Sequential Compression Device (SCD) <Hollis Edwards - 05/12/18 16:29> Total Risk Factor Score Risk Level Prophylaxis Regimen 0-1 Low Early ambulation 2 Moderate Order ONE of the following: *Sequential Compression Device (SCD) *Heparin 5000 units SQ BID 3-4 Higher Order ONE of the following medications: *Heparin 5000 units SQ TID *Enoxaparin/Lovenox 40 mg SQ daily (WT < 150 kg, CrCl > 30 mL/min) *Enoxaparin/Lovenox 30 mg SQ daily (WT < 150 kg, CrCl > 10-29 mL/min) *Enoxaparin/Lovenox 30 mg SQ BID (WT < 150 kg, CrCl > 30 mL/min) AND/OR *Sequential Compression Device (SCD) 5 or more Highest Order ONE of the following medications: *Heparin 5000 units SQ TID (Preferred with Epidurals) *Enoxaparin/Lovenox 40 mg SQ daily (WT < 150 kg, CrCl > 30 mL/min) *Enoxaparin/Lovenox 30 mg SQ daily (WT < 150 kg, CrCl > 10-29 mL/min) *Enoxaparin/Lovenox 30 mg SQ BID (WT < 150 kg, CrCl > 30 mL/min) AND *Sequential Compression Device (SCD) <Tom Petersen - 05/10/18 15:52> Assessment and Plan - Assessment (1) Acute CVA (cerebrovascular accident) Code(s): I63.9 - Cerebral infarction, unspecified Status: Acute Plan: Patient presented with acute leg weakness which developed in ER waiting room. Head CT negative. Mild left-sided carotid artery stenosis. Had CTA negative. Weakness improving. ER discussed TPA benefits and risks with patient and family per neurology request. They elected to not administer TPA. -Follow-up MRI -Head of bed flat for 12 hours -Aspirin -Atorvastatin 40 mg -Appreciate neurology recommendation (2) Hypertensive urgency Code(s): I16.0 - Hypertensive urgency Status: Acute Plan: Patient presented with blood pressure 252/119. Was started on Cardene drip in ED per Dr. Higgins recommendation. -Continue Cardene drip -Telemetry -Pulse ox -Control to 180/100 -Restart and continue home medications as possible (3) Microscopic hematuria Code(s): R31.29 - Other microscopic hematuria Status: Acute Plan: Microscopic hematuria an outpatient. Small occult blood on UA. -Consider abdominal CT versus renal ultrasound (4) Diabetes Code(s): E11.9 - Type 2 diabetes mellitus without complications Status: Acute Plan: History of diabetes. Has not been taking diabetic medications. Is on insulin. -Currently n.p.o., consider low-dose sliding scale following n.p.o. (5) Hypertension Code(s): I10 - Essential (primary) hypertension Status: Acute Plan: History of hypertension, see hypertensive urgency above. (6) Cognitive impairment Code(s): R41.89 - Other symptoms and signs involving cognitive functions and awareness Status: Acute Plan: History of dementia. -Continue Namenda <Tom Petersen - 05/10/18 18:06> (1) TIA (transient ischemic attack) Code(s): G45.9 - Transient cerebral ischemic attack, unspecified Status: Acute (2) Hypertensive urgency Code(s): I16.0 - Hypertensive urgency Status: Acute (3) Microscopic hematuria Code(s): R31.29 - Other microscopic hematuria Status: Acute (4) Diabetes Code(s): E11.9 - Type 2 diabetes mellitus without complications Status: Acute (5) Hypertension Code(s): I10 - Essential (primary) hypertension Status: Acute (6) Cognitive impairment Code(s): R41.89 - Other symptoms and signs involving cognitive functions and awareness Status: Acute <Hollis Edwards - 05/12/18 16:29> - Attending Attestation THIS CASE WAS DISCUSSED WITH THE RESIDENT PHYSICIANS. I HAVE REVIEWED THE RECORD AND AGREE WITH THE ABOVE NOTE AND PLAN OF CARE WAS DISCUSSED. I HAVE AUTHORIZED THE ORDER FOR ADMISSION TO AN IN-PATIENT STATUS. Hollis Edwards MD <Hollis Edwards - 05/12/18 16:29>
[2018-05-10] MEDS ORDERED: Dextrose 50% in Water 50 ML Vial IV.PUSH PRN (15:57)
--- NOTE | 2018-05-10 16:46 | P.CONNEU ---
History of Present Illness Service: Neurology Primary Care Provider: UNKNOWN Chief Complaint: Weakness, stroke History of Present Illness: 78-year-old male admitted for stroke symptoms. Noted to have severe hypertension placed on a Cardene drip. Developed right leg weakness. Symptoms had improved. IV TPA discussed family and patient, risks and benefits were discussed. They declined treatment want to continue with medical management. Denies any headache or neck trauma states his right leg is still weak. Interestingly he had a stroke several years ago he states that effect his right side but it improved. Does not take any blood thinners or any antiplatelet agents. He apparently recently has been having some hematuria Review of Systems All other systems reviewed negative except as stated in HPI [facility] - History History Provided By: Patient, Family Member - Medical History Medical History: Medical History (Last Updated 05/10/18 @ 10:24 by Jennifer Mcdaniel) Diabetes Hypertension Kidney disease - Surgical History Surgical History: Surgical History (Last Updated 05/10/18 @ 11:44 by Rand Nevarez) H/O heart artery stent Hx of hernia repair - Tobacco History Second Hand Smoke Exposure: No Smoking Status: Never smoker - Alcohol History How Often Do You Have a Drink Containing Alcohol: Never - Travel History Recent Travel in the [place] Within the Last 8 Weeks: No Recent Travel Out of the Country Within the Last 8 Weeks: No - Immunization History Tetanus Immunization: Unsure Medications and Allergies Active Medications: Active Medications Aspirin (Aspirin) 325 mg PO DAILY [facility] Atorvastatin Calcium (Lipitor) 40 mg PO HS [facility] Dextrose (D50w Vial) 50 ml IV.PUSH UNSCH PRN PRN Reason: PER HYPOGLYCEMIA PROTOCOL Enalaprilat (Vasotec Inj) 1.25 mg IV.PUSH Q4H PRN PRN Reason: For SBP > 220 or DBP > 120 Enoxaparin Sodium (Lovenox Inj) 40 mg SQ Q24H [facility] Glucagon (Glucagon Inj) 1 mg OTHER UNSCH PRN PRN Reason: for Hypoglycemia Protocol Sodium Chloride (Ns Inj) 1,000 mls @ 70 mls/hr IV.CONT .[id number] [facility] Last Admin: 05/10/18 12:42 Dose: 70 mls/hr Nicardipine HCl 25 mg/ Sodium (Chloride) 250 mls @ 50 mls/hr IV.CONT TITRATE PRN; Protocol PRN Reason: Per Protocol Last Admin: 05/10/18 12:41 Dose: 5 mg/hr, 50 mls/hr Sodium Chloride (Ns Inj) 1,000 mls @ 100 mls/hr IV.CONT .Q10H [facility] Insulin Aspart (Novolog Insulin Correctional Sugar Inj) 0 unit SQ ACHS [facility]; Protocol Sodium Chloride (Ns Flush) 2 ml IV.FLUSH BID [facility] Sodium Chloride (Ns Flush) 2 ml IV.FLUSH PRN PRN PRN Reason: FLUSH AFTER USING IV ACCESS Allergies Allergy/AdvReac Type Severity Reaction Status Date / Time No Known Allergies Allergy Verified 05/10/18 11:40 Home Medications Medication Instructions Recorded Confirmed Type amlodipine 10 mg PO DAILY 05/10/18 05/10/18 History atorvastatin 20 mg PO DAILY 05/10/18 05/10/18 History clonidine HCl 0.5 tab PO DAILY 05/10/18 05/10/18 History insulin glargine [Lantus U-100 40 unit SUBCUT HS 05/10/18 05/10/18 History Insulin] loratadine 10 mg PO DAILY 05/10/18 05/10/18 History losartan-hydrochlorothiazide 1 tab PO HS 05/10/18 05/10/18 History memantine [Namenda] 10 mg PO DAILY 05/10/18 05/10/18 History metoprolol tartrate 100 mg PO BID 05/10/18 05/10/18 History sitagliptin [Januvia] 100 mg PO DAILY 05/10/18 05/10/18 History Exam Vital signs: Vital Signs 05/10/18 10:14 05/10/18 11:46 05/10/18 11:50 Temperature 97.6 F Pulse Rate 76 84 Respiratory Rate 16 18 Blood Pressure 252/119 H 237/104 H Pulse Oximetry 98 98 97 05/10/18 11:53 05/10/18 15:00 Temperature Pulse Rate 76 Respiratory Rate 18 Blood Pressure 147/65 H Pulse Oximetry 100 100 Intake & Output 05/09/18 05/10/18 05/10/18 18:59 06:59 18:59 Weight 65.771 kg Narrative: GENERAL: in NAD, SKIN: Warm and dry. HEAD: Atraumatic. Normocephalic. EYES: Pupils equal and round. No scleral icterus. ENT: No nasal bleeding or discharge. NECK: Trachea midline. No JVD. CARDIOVASCULAR: Regular rate and rhythm. RESPIRATORY: No accessory muscle use. GASTROINTESTINAL: Abdomen soft, non-tender, nondistended. MUSCULOSKELETAL: Extremities without clubbing, cyanosis, or edema. No obvious deformities. NEUROLOGICAL: Awake and alert. No aphasia, oriented x2, not to date, follows fluent articulate, No facial asymmetry, OU 3-2mm, eomi, VFF, No drift in upper extremities, right lower extremity strength 2-3 out of 5, left lower extremity strength 5 out of 5, mild distal neuropathic changes noted stocking distribution reduced pinprick light touch PSYCHIATRIC: Calm, appropriate, pleasant - Constitutional no acute distress - Routine HEENT Exam Head: Present: normocephalic Eye: Present: EOMI Results - Labs CBC & Chem 7: 05/10/18 11:39 05/10/18 11:39 Labs: Laboratory Results - last 24 hr 05/10/18 05/10/18 05/10/18 11:39 11:39 11:39 WBC 6.5 RBC 5.08 Hgb 15.3 POC Hgb (Calc) 15.3 Hct 45.7 POC Hct 45.0 MCV 89.8 MCH 30.2 MCHC 33.6 RDW 13.3 Plt Count 229 MPV 10.5 Neut % (Auto) 71.8 H Lymph % (Auto) 19.5 [place] % (Auto) 7.2 Eos % (Auto) 0.8 Baso % (Auto) 0.7 Neut # (Auto) 4.7 Lymph # (Auto) 1.3 [place] # (Auto) 0.5 Eos # (Auto) 0.0 Baso # (Auto) 0.0 WBC Differential . Differential Comment Auto diff final PT 10.1 INR 1.0 APTT 23.2 L Fibrinogen 410 H POC Sodium 136 L Sodium POC Potassium 4.5 Potassium POC Chloride 98 L Chloride Carbon Dioxide Anion Gap POC BUN 20 BUN Creatinine POC Creatinine 1.5 H Estimated GFR POC Glucose 379 H Random Glucose Calcium Total Bilirubin AST ALT Alkaline Phosphatase Total Creatine Kinase 296 Troponin I 0.05 Total Protein Albumin Urine Color Urine Clarity Urine pH Ur Specific [place] Urine Protein Urine Glucose (UA) Urine Ketones Urine Occult Blood Urine Nitrate Urine Bilirubin Urine Urobilinogen Ur Leukocyte Esterase Urine RBC Urine WBC Ur Squamous Epith Cells Micro UA Comment Ur Microscopic Review Urine Culture Comments Urine Opiates Screen Ur Barbiturates Screen Ur Amphetamines Screen U Benzodiazepines Scrn Urine Cocaine Screen U Cannabinoids Screen Blood Type Blood Type Recheck Antibody Screen 05/10/18 05/10/18 05/10/18 11:39 11:39 11:52 WBC RBC Hgb POC Hgb (Calc) Hct POC Hct MCV MCH MCHC RDW Plt Count MPV Neut % (Auto) Lymph % (Auto) [place] % (Auto) Eos % (Auto) Baso % (Auto) Neut # (Auto) Lymph # (Auto) [place] # (Auto) Eos # (Auto) Baso # (Auto) WBC Differential Differential Comment PT INR APTT Fibrinogen POC Sodium Sodium 136 POC Potassium Potassium 4.5 POC Chloride Chloride 101 Carbon Dioxide 25.4 Anion Gap 10 POC BUN BUN 21 H Creatinine 1.91 H POC Creatinine Estimated GFR 42 L POC Glucose 350 H Random Glucose 370 H Calcium 9.3 Total Bilirubin 0.4 AST 26 ALT 20 Alkaline Phosphatase 136 H Total Creatine Kinase Troponin I Total Protein 7.6 Albumin 3.4 Urine Color Urine Clarity Urine pH Ur Specific [place] Urine Protein Urine Glucose (UA) Urine Ketones Urine Occult Blood Urine Nitrate Urine Bilirubin Urine Urobilinogen Ur Leukocyte Esterase Urine RBC Urine WBC Ur Squamous Epith Cells Micro UA Comment Ur Microscopic Review Urine Culture Comments Urine Opiates Screen Ur Barbiturates Screen Ur Amphetamines Screen U Benzodiazepines Scrn Urine Cocaine Screen U Cannabinoids Screen Blood Type B Positive Blood Type Recheck Not needed Antibody Screen Negative 05/10/18 05/10/18 13:32 13:32 WBC RBC Hgb POC Hgb (Calc) Hct POC Hct MCV MCH MCHC RDW Plt Count MPV Neut % (Auto) Lymph % (Auto) [place] % (Auto) Eos % (Auto) Baso % (Auto) Neut # (Auto) Lymph # (Auto) [place] # (Auto) Eos # (Auto) Baso # (Auto) WBC Differential Differential Comment PT INR APTT Fibrinogen POC Sodium Sodium POC Potassium Potassium POC Chloride Chloride Carbon Dioxide Anion Gap POC BUN BUN Creatinine POC Creatinine Estimated GFR POC Glucose Random Glucose Calcium Total Bilirubin AST ALT Alkaline Phosphatase Total Creatine Kinase Troponin I Total Protein Albumin Urine Color Straw Urine Clarity Clear Urine pH 7.0 Ur Specific [place] 1.029 Urine Protein 500 or greater Urine Glucose (UA) 500 or greater Urine Ketones Trace H Urine Occult Blood Small H Urine Nitrate Negative Urine Bilirubin Negative Urine Urobilinogen Less than 2 Ur Leukocyte Esterase Negative Urine RBC Less than 1 Urine WBC 1 Ur Squamous Epith Cells <1 Micro UA Comment Culture not ind Ur Microscopic Review Not Reportable Urine Culture Comments Culture not ind Urine Opiates Screen Neg Ur Barbiturates Screen Neg Ur Amphetamines Screen Neg U Benzodiazepines Scrn Neg Urine Cocaine Screen Neg U Cannabinoids Screen Neg Blood Type Blood Type Recheck Antibody Screen - Imaging Impressions Chest X-Ray 05/10/18 11:53 CONCLUSION: No acute disease Head CT 05/10/18 11:53 CONCLUSION: Negative CT Head non contrast. Report was called by [Clayton Soares at 1210 ] Head CTA 05/10/18 12:07 CONCLUSION: No acute [place] vascular findings Report was called by [Clayton to Dominga Guerrero ]at 1228 Neck CTA 05/10/18 12:07 CONCLUSION: Mild asymmetrically left-sided carotid stenosis. Review/Management - Diagnosis (1) Acute CVA (cerebrovascular accident) Code(s): I63.9 - Cerebral infarction, unspecified Status: Acute Current Visit: Yes (2) Diabetic neuropathy Code(s): E11.40 - Type 2 diabetes mellitus with diabetic neuropathy, unspecified Status: Acute Current Visit: Yes (3) Hypertension Code(s): I10 - Essential (primary) hypertension Status: Acute Current Visit : Yes (4) Cognitive impairment Code(s): R41.89 - Other symptoms and signs involving cognitive functions and awareness Status: Acute Current Visit: Yes (5) Hypertensive urgency Code(s): I16.0 - Hypertensive urgency Status: Acute Current Visit: Yes - Review/Management Plan: Probable recurrent. Motor stroke affecting left subcortical Possibly small vessel ischemic related CT brain carotids reviewed mild stenosis left carotid Recommendation Aspirin Some history of recent hematuria-monitor Blood pressure less than 200/100 Follow-up MRI brain Echo Follow-up fasting lipid, HbA1c Behavioral modification and risk factor reduction. Weight loss, blood pressure control, blood sugar control, lipid control. Exercise
--- NOTE | 2018-05-10 17:07 | MR ---
EXAM DATE: 05/10/2018 4:58 PM EST AGE/SEX: 78 years / Male INDICATIONS: CVA. Right sided weakness. CLINICAL DATA: This is the patient's initial encounter. Patient reports that signs and symptoms have been present for 1 day and indicates a pain score of 3/10. MEDICAL/SURGICAL HISTORY: Stroke. Hypertension. Diabetes mellitus type II. Coronary artery st ent. Hernia sx. COMPARISON: No prior exams available for comparison. TECHNIQUE: Multiplanar, multisequence examination of the brain was performed without contrast. FINDINGS: Cerebrum: The ventricles are normal for age. Cerebral atrophy. No evidence of midline shift, mass l esion, hemorrhage or acute infarction. No extraaxial fluid collections are seen. The pituitary glan d and suprasellar cistern are normal in configuration. White Matter: Minimal areas of high T2 signal abnormalities are seen in the white matter. Posterior Fossa: The cerebellum and brainstem are intact. The 4th ventricle is midline. The cerebel lopontine angle is unremarkable. The cerebellar tonsils are normal in position. Diffusion Imaging: No focal areas of restricted diffusion are seen. No evidence of acute infarction . Extracranial: The visualized portions of the orbits and paranasal sinuses are unremarkable.-Right fr ontal and ethmoid sinus disease. CONCLUSION: 1. Cerebral atrophy and chronic ischemic small vessel vasculopathy. 2. Right frontal and ethmoid sinus disease. 3. No acute intracranial abnormality. Electronically signed by: Bill Carvajal MD 05/10/2018 5:06 PM EST
[2018-05-10] MEDS ORDERED: Enoxaparin Inj 40 MG/0.4 ML Syringe SQ SCH (18:00)
[2018-05-10] MEDS: Insulin NovoLOG Aspart Correctional Sugar Inj SQ SCH ×2 (18:32→22:56)
[2018-05-10] MEDS ORDERED: Non-Formulary Drug (Losartan-Hydrochlorothiazide [Losartan-Hydrochlorothiazide] 1 TAB) PO SCH (21:00)
[2018-05-10] MEDS: Metoprolol Tartrate 100 MG Tablet PO SCH (22:39)
[2018-05-11] MEDS: Sod Chloride 0.9% Inj 1,000 ML IV.CONT SCH ×4 (04:06→13:41)
[2018-05-11 04:43] LABS: Chol/HDL Ratio 8.23 Ratio
[2018-05-11] MEDS ORDERED: Dextrose 50% in Water 50 ML Vial IV.PUSH PRN (07:19)
[2018-05-11] MEDS: Insulin NovoLOG Aspart Correctional Sugar Inj SQ SCH ×4 (08:19→21:05)
[2018-05-11] MEDS: Loratadine 10 MG Tablet PO SCH (08:19)
[2018-05-11] MEDS: Metoprolol Tartrate 100 MG Tablet PO SCH ×2 (08:19→21:02)
[2018-05-11] MEDS: Aspirin 325 MG Tablet PO SCH (08:19)
--- NOTE | 2018-05-11 09:15 | P.PNNEU ---
Subjective Subjective Comments: No cp, no dyspnea, no garcia, , no vision loss. Right leg feels better. No vertigo Active Medications: Active Medications Amlodipine Besylate (Norvasc) 10 mg PO DAILY [facility] Aspirin (Aspirin) 325 mg PO DAILY [facility] Last Admin: 05/11/18 08:19 Dose: 325 mg Atorvastatin Calcium (Lipitor) 40 mg PO HS [facility] Last Admin: 05/10/18 22:39 Dose: 40 mg Clonidine HCl (Catapres) 0.05 mg PO DAILY [facility] Last Admin: 05/11/18 08:18 Dose: 0.05 mg Dextrose (D50w Vial) 50 ml IV.PUSH UNSCH PRN PRN Reason: PER HYPOGLYCEMIA PROTOCOL Enalaprilat (Vasotec Inj) 1.25 mg IV.PUSH Q4H PRN PRN Reason: For SBP > 220 or DBP > 120 Enoxaparin Sodium (Lovenox Inj) 40 mg SQ Q24H [facility] Last Admin: 05/10/18 18:19 Dose: 40 mg Glucagon (Glucagon Inj) 1 mg OTHER PRN PRN PRN Reason: for Hypoglycemia Protocol Hydrochlorothiazide (Microzide) 12.5 mg PO HS [facility] Last Admin: 05/10/18 22:39 Dose: 12.5 mg Sodium Chloride (Ns Inj) 1,000 mls @ 100 mls/hr IV.CONT .Q10H [facility] Last Infusion: 05/11/18 04:25 Dose: Infused Insulin Aspart (Novolog Insulin Correctional Sugar Inj) 0 unit SQ ACHS [facility]; Protocol Last Admin: 05/11/18 08:19 Dose: 9 unit Loratadine (Claritin) 10 mg PO DAILY [facility] Last Admin: 05/11/18 08:19 Dose: 10 mg Losartan Potassium (Cozaar) 50 mg PO HS [facility] Last Admin: 05/10/18 22:38 Dose: 50 mg Memantine (Namenda) 10 mg PO DAILY [facility] Last Admin: 05/11/18 08:19 Dose: 10 mg Metoprolol Tartrate (Lopressor) 100 mg PO BID [facility] Last Admin: 05/11/18 08:19 Dose: 100 mg Miscellaneous (Pill Splitter) 1 each OTHER UNSCH PRN PRN Reason: PILL SPLITTER Sodium Chloride (Ns Flush) 2 ml IV.FLUSH BID [facility] Last Admin: 05/11/18 08:27 Dose: Not Given Sodium Chloride (Ns Flush) 2 ml IV.FLUSH PRN PRN PRN Reason: FLUSH AFTER USING IV ACCESS Allergies/Adverse Reactions: Allergies Allergy/AdvReac Type Severity Reaction Status Date / Time No Known Allergies Allergy Verified 05/10/18 11:40 Review of Systems All other systems reviewed negative except as stated in HPI Physical Exam Vital signs: Vital Signs 05/10/18 10:14 05/10/18 11:46 05/10/18 11:50 Temperature 97.6 F Pulse Rate 76 84 Respiratory Rate 16 18 Blood Pressure 252/119 H 237/104 H Pulse Oximetry 98 98 97 05/10/18 11:53 05/10/18 15:00 05/10/18 15:57 Temperature Pulse Rate 76 84 Respiratory Rate 18 Blood Pressure 147/65 H Pulse Oximetry 100 100 05/10/18 16:00 05/10/18 19:00 05/11/18 07:41 Temperature Pulse Rate 83 82 66 Respiratory Rate 18 18 14 Blood Pressure 144/63 H 135/61 191/95 H Pulse Oximetry 100 99 98 05/11/18 07:52 Temperature Pulse Rate Respiratory Rate Blood Pressure Pulse Oximetry 95 Intake & Output 05/10/18 05/11/18 05/11/18 18:59 06:59 18:59 Intake Total 250 / 250 2250 / 2250 1000 / 1000 Balance 250 / 250 2250 / 2250 1000 / 1000 Weight 65.771 kg Intake: IV 250 / 250 2250 / 2250 1000 / 1000 NS Inj 1,000 ML @ 70 mls/hr IV. 1999 1000 / 1000 CONT .[id number] [facility] Rx#:[id number] Cardene Inj 25 MG In NS Inj 240 250 / 250 250 / 250 ML @ 5 MG/HR 50 mls/hr IV.CONT TITRATE PRN Rx#:[id number] Narrative: GENERAL: in NAD, sitting up in bed looks well SKIN: Warm and dry. HEAD: Atraumatic. Normocephalic. EYES: Pupils equal and round. No scleral icterus. ENT: No nasal bleeding or discharge. CARDIOVASCULAR: Regular rate and rhythm. RESPIRATORY: No accessory muscle use. GASTROINTESTINAL: Abdomen soft, non-tender, nondistended. MUSCULOSKELETAL: Extremities without clubbing, cyanosis, or edema NEUROLOGICAL: Awake and alert. No aphasia, oriented x2, not to date, follows fluent articulate, No facial asymmetry, OU 3-2mm, eomi, VFF, No drift in upper extremities, right lower extremity strength 3-4 out of 5, left lower extremity strength 5 out of 5, mild distal neuropathic changes noted stocking distribution reduced pinprick light touch PSYCHIATRIC: Calm, appropriate, pleasant - Constitutional no acute distress - Routine HEENT Exam Head: Present: normocephalic Eye: Present: EOMI Objective Laboratory Results - last 24 hr 05/10/18 05/10/18 05/10/18 11:39 11:39 11:39 WBC 6.5 RBC 5.08 Hgb 15.3 POC Hgb (Calc) 15.3 Hct 45.7 POC Hct 45.0 MCV 89.8 MCH 30.2 MCHC 33.6 RDW 13.3 Plt Count 229 MPV 10.5 Neut % (Auto) 71.8 H Lymph % (Auto) 19.5 [place] % (Auto) 7.2 Eos % (Auto) 0.8 Baso % (Auto) 0.7 Neut # (Auto) 4.7 Lymph # (Auto) 1.3 [place] # (Auto) 0.5 Eos # (Auto) 0.0 Baso # (Auto) 0.0 WBC Differential . Differential Comment Auto diff final PT 10.1 INR 1.0 APTT 23.2 L Fibrinogen 410 H POC Sodium 136 L Sodium POC Potassium 4.5 Potassium POC Chloride 98 L Chloride Carbon Dioxide Anion Gap POC BUN 20 BUN Creatinine POC Creatinine 1.5 H Estimated GFR POC Glucose 379 H Random Glucose Calcium Total Bilirubin AST ALT Alkaline Phosphatase Total Creatine Kinase 296 Troponin I 0.05 Total Protein Albumin Triglycerides Cholesterol LDL Cholesterol, Calc HDL Cholesterol Cholesterol/HDL Ratio Vitamin B12 TSH Urine Color Urine Clarity Urine pH Ur Specific [place] Urine Protein Urine Glucose (UA) Urine Ketones Urine Occult Blood Urine Nitrate Urine Bilirubin Urine Urobilinogen Ur Leukocyte Esterase Urine RBC Urine WBC Ur Squamous Epith Cells Micro UA Comment Ur Microscopic Review Urine Culture Comments Urine Opiates Screen Ur Barbiturates Screen Ur Amphetamines Screen U Benzodiazepines Scrn Urine Cocaine Screen U Cannabinoids Screen Blood Type Blood Type Recheck Antibody Screen 05/10/18 05/10/18 05/10/18 11:39 11:39 11:39 WBC RBC Hgb POC Hgb (Calc) Hct POC Hct MCV MCH MCHC RDW Plt Count MPV Neut % (Auto) Lymph % (Auto) [place] % (Auto) Eos % (Auto) Baso % (Auto) Neut # (Auto) Lymph # (Auto) [place] # (Auto) Eos # (Auto) Baso # (Auto) WBC Differential Differential Comment PT INR APTT Fibrinogen POC Sodium Sodium 136 POC Potassium Potassium 4.5 POC Chloride Chloride 101 Carbon Dioxide 25.4 Anion Gap 10 POC BUN BUN 21 H Creatinine 1.91 H POC Creatinine Estimated GFR 42 L POC Glucose Random Glucose 370 H Calcium 9.3 Total Bilirubin 0.4 AST 26 ALT 20 Alkaline Phosphatase 136 H Total Creatine Kinase Troponin I Total Protein 7.6 Albumin 3.4 Triglycerides Cholesterol LDL Cholesterol, Calc HDL Cholesterol Cholesterol/HDL Ratio Vitamin B12 973 TSH Urine Color Urine Clarity Urine pH Ur Specific [place] Urine Protein Urine Glucose (UA) Urine Ketones Urine Occult Blood Urine Nitrate Urine Bilirubin Urine Urobilinogen Ur Leukocyte Esterase Urine RBC Urine WBC Ur Squamous Epith Cells Micro UA Comment Ur Microscopic Review Urine Culture Comments Urine Opiates Screen Ur Barbiturates Screen Ur Amphetamines Screen U Benzodiazepines Scrn Urine Cocaine Screen U Cannabinoids Screen Blood Type B Positive Blood Type Recheck Not needed Antibody Screen Negative 05/10/18 05/10/18 05/10/18 11:52 13:32 13:32 WBC RBC Hgb POC Hgb (Calc) Hct POC Hct MCV MCH MCHC RDW Plt Count MPV Neut % (Auto) Lymph % (Auto) [place] % (Auto) Eos % (Auto) Baso % (Auto) Neut # (Auto) Lymph # (Auto) [place] # (Auto) Eos # (Auto) Baso # (Auto) WBC Differential Differential Comment PT INR APTT Fibrinogen POC Sodium Sodium POC Potassium Potassium POC Chloride Chloride Carbon Dioxide Anion Gap POC BUN BUN Creatinine POC Creatinine Estimated GFR POC Glucose 350 H Random Glucose Calcium Total Bilirubin AST ALT Alkaline Phosphatase Total Creatine Kinase Troponin I Total Protein Albumin Triglycerides Cholesterol LDL Cholesterol, Calc HDL Cholesterol Cholesterol/HDL Ratio Vitamin B12 TSH Urine Color Straw Urine Clarity Clear Urine pH 7.0 Ur Specific [place] 1.029 Urine Protein 500 or greater Urine Glucose (UA) 500 or greater Urine Ketones Trace H Urine Occult Blood Small H Urine Nitrate Negative Urine Bilirubin Negative Urine Urobilinogen Less than 2 Ur Leukocyte Esterase Negative Urine RBC Less than 1 Urine WBC 1 Ur Squamous Epith Cells <1 Micro UA Comment Culture not ind Ur Microscopic Review Not Reportable Urine Culture Comments Culture not ind Urine Opiates Screen Neg Ur Barbiturates Screen Neg Ur Amphetamines Screen Neg U Benzodiazepines Scrn Neg Urine Cocaine Screen Neg U Cannabinoids Screen Neg Blood Type Blood Type Recheck Antibody Screen 05/10/18 05/10/18 05/11/18 18:22 22:54 03:40 WBC RBC Hgb POC Hgb (Calc) Hct POC Hct MCV MCH MCHC RDW Plt Count MPV Neut % (Auto) Lymph % (Auto) [place] % (Auto) Eos % (Auto) Baso % (Auto) Neut # (Auto) Lymph # (Auto) [place] # (Auto) Eos # (Auto) Baso # (Auto) WBC Differential Differential Comment PT INR APTT Fibrinogen POC Sodium Sodium POC Potassium Potassium POC Chloride Chloride Carbon Dioxide Anion Gap POC BUN BUN Creatinine POC Creatinine Estimated GFR POC Glucose 262 H 287 H Random Glucose Calcium Total Bilirubin AST ALT Alkaline Phosphatase Total Creatine Kinase Troponin I Total Protein Albumin Triglycerides 285 H Cholesterol 346 H LDL Cholesterol, Calc 247 H HDL Cholesterol 42.0 Cholesterol/HDL Ratio 8.23 Vitamin B12 TSH Urine Color Urine Clarity Urine pH Ur Specific [place] Urine Protein Urine Glucose (UA) Urine Ketones Urine Occult Blood Urine Nitrate Urine Bilirubin Urine Urobilinogen Ur Leukocyte Esterase Urine RBC Urine WBC Ur Squamous Epith Cells Micro UA Comment Ur Microscopic Review Urine Culture Comments Urine Opiates Screen Ur Barbiturates Screen Ur Amphetamines Screen U Benzodiazepines Scrn Urine Cocaine Screen U Cannabinoids Screen Blood Type Blood Type Recheck Antibody Screen 05/11/18 05/11/18 03:40 07:37 WBC RBC Hgb POC Hgb (Calc) Hct POC Hct MCV MCH MCHC RDW Plt Count MPV Neut % (Auto) Lymph % (Auto) [place] % (Auto) Eos % (Auto) Baso % (Auto) Neut # (Auto) Lymph # (Auto) [place] # (Auto) Eos # (Auto) Baso # (Auto) WBC Differential Differential Comment PT INR APTT Fibrinogen POC Sodium Sodium POC Potassium Potassium POC Chloride Chloride Carbon Dioxide Anion Gap POC BUN BUN Creatinine POC Creatinine Estimated GFR POC Glucose 355 H Random Glucose Calcium Total Bilirubin AST ALT Alkaline Phosphatase Total Creatine Kinase Troponin I Total Protein Albumin Triglycerides Cholesterol LDL Cholesterol, Calc HDL Cholesterol Cholesterol/HDL Ratio Vitamin B12 TSH 1.730 Urine Color Urine Clarity Urine pH Ur Specific [place] Urine Protein Urine Glucose (UA) Urine Ketones Urine Occult Blood Urine Nitrate Urine Bilirubin Urine Urobilinogen Ur Leukocyte Esterase Urine RBC Urine WBC Ur Squamous Epith Cells Micro UA Comment Ur Microscopic Review Urine Culture Comments Urine Opiates Screen Ur Barbiturates Screen Ur Amphetamines Screen U Benzodiazepines Scrn Urine Cocaine Screen U Cannabinoids Screen Blood Type Blood Type Recheck Antibody Screen Review/Management - Diagnosis (1) Acute CVA (cerebrovascular accident) Code(s): I63.9 - Cerebral infarction, unspecified Status: Acute Current Visit: Yes (2) Diabetic neuropathy Code(s): E11.40 - Type 2 diabetes mellitus with diabetic neuropathy, unspecified Status: Acute Current Visit: Yes (3) Hypertension Code(s): I10 - Essential (primary) hypertension Status: Acute Current Visit : Yes (4) Cognitive impairment Code(s): R41.89 - Other symptoms and signs involving cognitive functions and awareness Status: Acute Current Visit: Yes (5) Hypertensive urgency Code(s): I16.0 - Hypertensive urgency Status: Acute Current Visit: Yes - Review/Management Plan: TIA, possibly worsened deficit secondary hypertension Possibly small vessel ischemic related CT brain carotids reviewed mild stenosis left carotid Severe dyslipidemia left HbA1c pending Recommendation Aspirin, statin Doing better Can be discharged from neurology standpoint once BP improved and if echo is negative for any thrombus with preserved ejection fraction Blood pressure control Discussed with patient and daughter Follow-up with PCP to follow-up with us in 1-2 weeks Behavioral modification and risk factor reduction. Weight loss, blood pressure control, blood sugar control, lipid control. Exercise
[2018-05-11] MEDS ORDERED: Insulin Detemir Inj 1,000 UNIT/10 ML Vial SQ SCH ×2 (11:15→21:00)
--- NOTE | 2018-05-11 12:16 | P.PNFP ---
Subjective Interval history: Pt is feeling better this morning. His right leg weakness has improved but not yet at baseline. He ate a full breakfast without issues. Pt's daughter was at bedside and was surprised to learn that he had not been taking his medications for at least 6 weeks. He pretty much lives by himself and his is currently in the [facility] rehab center. The family is working on getting him to stay with one of his daughters at least in the short-term. <Ning Bertrand U - 05/11/18 15:47> Results - Labs Result diagrams: 05/12/18 04:26 05/12/18 04:26 <Hollis Edwards R - 05/12/18 13:06> Abnormal lab results 05/11/18 05/11/18 05/11/18 Range/Units 03:40 17:34 19:58 BUN (7-18) mg/dL Creatinine (0.60-1.30) mg/dL Estimated GFR (>89) mL/min POC Glucose 417 H 213 H (68-110) mg/dl Hemoglobin A1c 13.9 H (4.3-6.0) % 05/12/18 Range/Units 04:26 BUN 30 H (7-18) mg/dL Creatinine 2.02 H (0.60-1.30) mg/dL Estimated GFR 39 L (>89) mL/min POC Glucose (68-110) mg/dl Hemoglobin A1c (4.3-6.0) % Short CBC 05/12/18 Range/Units 04:26 WBC 8.9 (4.0-11.0) th/mm3 Hgb 15.4 (13.0-17.0) gm/dL Hct 46.4 (39.0-51.0) % Plt Count 321 D (150-450) th/mm3 BMP 05/12/18 04:26 Sodium 137 Potassium 3.8 Chloride 102 Carbon Dioxide 28.1 BUN 30 H Creatinine 2.02 H Calcium 9.3 <Hollis Edwards R - 05/12/18 13:06> Abnormal lab results 05/10/18 05/10/18 05/10/18 Range/Units 11:39 11:39 11:39 Neut % (Auto) 71.8 H (16.0-70.0) % APTT 23.2 L (23.4-31.7) sec Fibrinogen 410 H (227-377) mg/dL POC Sodium 136 L (137-144) mmol/L POC Chloride 98 L (102-111) mmol/L BUN (7-18) mg/dL Creatinine (0.60-1.30) mg/dL POC Creatinine 1.5 H (0.6-1.3) mg/dL Estimated GFR (>89) mL/min POC Glucose 379 H (68-110) mg/dL Random Glucose (74-106) mg/dL Alkaline Phosphatase (45-117) U/L Triglycerides (42-150) mg/dL Cholesterol (120-200) mg/dL LDL Cholesterol, Calc (0-99) mg/dL Urine Ketones (Negative) mg/dL Urine Occult Blood (Negative) 05/10/18 05/10/18 05/10/18 Range/Units 11:39 13:32 18:22 Neut % (Auto) (16.0-70.0) % APTT (23.4-31.7) sec Fibrinogen (227-377) mg/dL POC Sodium (137-144) mmol/L POC Chloride (102-111) mmol/L BUN 21 H (7-18) mg/dL Creatinine 1.91 H (0.60-1.30) mg/dL POC Creatinine (0.6-1.3) mg/dL Estimated GFR 42 L (>89) mL/min POC Glucose 262 H (68-110) mg/dL Random Glucose 370 H (74-106) mg/dL Alkaline Phosphatase 136 H (45-117) U/L Triglycerides (42-150) mg/dL Cholesterol (120-200) mg/dL LDL Cholesterol, Calc (0-99) mg/dL Urine Ketones Trace H (Negative) mg/dL Urine Occult Blood Small H (Negative) 05/10/18 05/11/18 05/11/18 Range/Units 22:54 03:40 07:37 Neut % (Auto) (16.0-70.0) % APTT (23.4-31.7) sec Fibrinogen (227-377) mg/dL POC Sodium (137-144) mmol/L POC Chloride (102-111) mmol/L BUN (7-18) mg/dL Creatinine (0.60-1.30) mg/dL POC Creatinine (0.6-1.3) mg/dL Estimated GFR (>89) mL/min POC Glucose 287 H 355 H (68-110) mg/dL Random Glucose (74-106) mg/dL Alkaline Phosphatase (45-117) U/L Triglycerides 285 H (42-150) mg/dL Cholesterol 346 H (120-200) mg/dL LDL Cholesterol, Calc 247 H (0-99) mg/dL Urine Ketones (Negative) mg/dL Urine Occult Blood (Negative) Short CBC 05/10/18 Range/Units 11:39 WBC 6.5 (4.0-11.0) th/mm3 Hgb 15.3 (13.0-17.0) gm/dL Hct 45.7 (39.0-51.0) % Plt Count 229 (150-450) th/mm3 BMP 05/10/18 11:39 Sodium 136 Potassium 4.5 Chloride 101 Carbon Dioxide 25.4 BUN 21 H Creatinine 1.91 H Calcium 9.3 Cardiac Enzymes 05/10/18 Range/Units 11:39 Total Creatine Kinase 296 (39-308) U/L Troponin I 0.05 (0.02-0.05) ng/mL Liver Function 05/10/18 Range/Units 11:39 Total Bilirubin 0.4 (0.2-1.0) mg/dL AST 26 (15-37) U/L ALT 20 (12-78) U/L Alkaline Phosphatase 136 H (45-117) U/L Albumin 3.4 (3.4-5.0) g/dL Urine 05/10/18 Range/Units 13:32 Urine Color Straw (Yellw/Straw) Urine Clarity Clear (Clear) Urine pH 7.0 (5.0-8.5) Ur Specific [place] 1.029 (1.002-1.035) Urine Protein 500 or greater (Neg-Trace) mg/dL Urine Glucose (UA) 500 or greater (Negative) mg/dL <EkNing arreguin U - 05/11/18 12:16> - Imaging Impressions Chest X-Ray 05/10/18 11:53 CONCLUSION: No acute disease Head CTA 05/10/18 12:07 CONCLUSION: No acute [place] vascular findings Report was called by [Clayton to Dominga Guerrero ]at 1228 Neck CTA 05/10/18 12:07 CONCLUSION: Mild asymmetrically left-sided carotid stenosis. Head MRI 05/10/18 16:00 CONCLUSION: 1. Cerebral atrophy and chronic ischemic small vessel vasculopathy. 2. Right frontal and ethmoid sinus disease. 3. No acute intracranial abnormality. <Ning Bertrand U - 05/11/18 12:16> Physical Exam Vital signs: Vital Signs 05/11/18 13:15 05/11/18 16:00 05/11/18 17:46 Temperature 97.6 F 97.7 F Pulse Rate 61 66 Respiratory Rate 18 18 Blood Pressure 181/82 H 178/78 H Pulse Oximetry 98 98 98 05/11/18 20:00 05/12/18 00:00 05/12/18 03:28 Temperature 98.6 F 98.7 F 97.8 F Pulse Rate 66 61 65 Respiratory Rate 17 17 16 Blood Pressure 172/76 H 163/71 H 164/72 H Pulse Oximetry 98 98 05/12/18 08:00 05/12/18 09:41 Temperature 97.9 F Pulse Rate 66 Respiratory Rate 18 Blood Pressure 130/63 Pulse Oximetry 99 99 Intake & Output 05/11/18 05/12/18 05/12/18 18:59 06:59 18:59 Intake Total 1000 / 1000 1120 / 1120 300 / 300 Balance 1000 / 1000 1120 / 1120 300 / 300 Weight 66.4 kg 67.2 kg Intake: IV 1000 / 1000 1000 / 1000 300 / 300 NS Inj 1,000 ML @ 100 mls/hr IV 1000 / 1000 1000 / 1000 300 / 300 .CONT .Q10H [facility] Rx#:[id number] Oral 120 / 120 Other: # Voids 2 Date of Last Bowel Movement 05/09/18 05/09/18 # Bowel Movements 0 Weight On Admission 66.4 kg <Hollis Edwards R - 05/12/18 13:06> Vital Signs 05/10/18 15:00 05/10/18 15:57 05/10/18 16:00 Pulse Rate 76 84 83 Respiratory Rate 18 18 Blood Pressure 147/65 H 144/63 H Pulse Oximetry 100 100 05/10/18 19:00 05/11/18 07:41 05/11/18 07:52 Pulse Rate 82 66 Respiratory Rate 18 14 Blood Pressure 135/61 191/95 H Pulse Oximetry 99 98 95 05/11/18 09:51 Pulse Rate 57 L Respiratory Rate 14 Blood Pressure 145/78 H Pulse Oximetry 98 Intake & Output 05/10/18 05/11/18 05/11/18 18:59 06:59 18:59 Intake Total 250 / 250 2250 / 2250 1000 / 1000 Balance 250 / 250 2250 / 2250 1000 / 1000 Weight 65.771 kg Intake: IV 250 / 250 2250 / 2250 1000 / 1000 NS Inj 1,000 ML @ 70 mls/hr IV. 1999 1000 / 1000 CONT .[id number] [facility] Rx#:[id number] Cardene Inj 25 MG In NS Inj 240 250 / 250 250 / 250 ML @ 5 MG/HR 50 mls/hr IV.CONT TITRATE PRN Rx#:[id number] <Ning Bertrand U - 05/11/18 12:16> Narrative: GENERAL: Sitting up in bed, no acute distress SKIN: Warm and dry. HEAD: Atraumatic. Normocephalic. EYES: Pupils equal and round. No scleral icterus. No injection or drainage. ENT: No nasal bleeding or discharge. Mucous membranes pink and moist. NECK: Trachea midline. No JVD. CARDIOVASCULAR: Regular rate and rhythm. 2/6 murmur. RESPIRATORY: No accessory muscle use. Clear to auscultation. Breath sounds equal bilaterally. GASTROINTESTINAL: Abdomen soft, non-tender, nondistended. MUSCULOSKELETAL: Extremities without clubbing, cyanosis, or edema. No obvious deformities. NEUROLOGICAL: Awake and alert. CN II through XII intact. Motor grossly within normal limits. Five out of 5 muscle strength in the arms. 5/5 strength in left leg, 3/5 in right leg. Normal speech. <Ning Bertrand U - 05/11/18 15:00> Assessment and Plan - Assessment (1) TIA (transient ischemic attack) Code(s): G45.9 - Transient cerebral ischemic attack, unspecified Status: Acute (2) Hypertensive urgency Code(s): I16.0 - Hypertensive urgency Status: Acute (3) Microscopic hematuria Code(s): R31.29 - Other microscopic hematuria Status: Acute (4) Diabetes Code(s): E11.9 - Type 2 diabetes mellitus without complications Status: Acute (5) Hypertension Code(s): I10 - Essential (primary) hypertension Status: Acute (6) Cognitive impairment Code(s): R41.89 - Other symptoms and signs involving cognitive functions and awareness Status: Acute <Hollis Ewdards - 05/12/18 13:06> (1) TIA (transient ischemic attack) Code(s): G45.9 - Transient cerebral ischemic attack, unspecified Status: Acute Plan: Patient presented with acute leg weakness which developed in the ER waiting room. Head CT negative. Mild left-sided carotid artery stenosis. Head CTA negative. Weakness is improving. -Follow-up head MRI was negative for an acute intracranial abnormality, only showed cerebral atrophy and chronic ischemic small vessel vasculopathy -Continue daily Aspirin -Continue Atorvastatin 40 mg -Seen by neurology -Cleared for discharge -Follow up in 1-2 weeks (2) Hypertensive urgency Code(s): I16.0 - Hypertensive urgency Status: Acute Plan: Patient presented with blood pressure 252/119. Was started on Cardene drip in ED. BP in the 140-150's systolic in the afternoon -Restarted home medications -Monitor closely (3) Microscopic hematuria Code(s): R31.29 - Other microscopic hematuria Status: Acute Plan: Microscopic hematuria an outpatient. Small occult blood on UA. -Consider abdominal CT versus renal ultrasound -Will defer management to PCP as outpatient (4) Diabetes Code(s): E11.9 - Type 2 diabetes mellitus without complications Status: Acute Plan: History of diabetes. Has not been taking diabetic medications. Is on Lantus 40 units HS at home -Patient did not receive 20 units Levemir in the am as ordered by MD -Blood sugars have trended down to the 200's -Patient to restart home Lantus 40 units at bedtime -Pt's daughter states that he can go home with one of them to make sure that his medications are administered daily (5) Hypertension Code(s): I10 - Essential (primary) hypertension Status: Acute Plan: History of hypertension, see hypertensive urgency above. (6) Cognitive impairment Code(s): R41.89 - Other symptoms and signs involving cognitive functions and awareness Status: Acute Plan: History of dementia. -Continue Namenda <Ning Bertrand U - 05/11/18 15:36> - Assessment and Plan Discussed Condition With: Seen and examined with Dr. Franklin, PGY1, Dr. Petersen, PGY2, and Dr. nga Edwards <Ning Bertrand U - 05/11/18 15:47> Discharge Planning: Plan to discharge home if blood glucose is within acceptable range and blood pressures are well-controlled. <Ning Bertrand U - 05/11/18 15:47> - Attending Attestation This patient was seen and evaluated with the resident physician. I agree with the plan of care as discussed with me and documented in the resident note. Hollis Edwards MD <Hollis Edwards R - 05/12/18 13:06>
--- NOTE | 2018-05-11 12:33 | ECHRPT ---
Indication: CVA/TIA CONCLUSIONS Normal left ventricular size. The left ventricular systolic function is low normal with an estimated ejection fraction in the rang e of 50- 55%. No regional wall motion abnormalities are present. Doppler parameters are consistent with impaired left ventricular relaxtion (grade 1 diastolic dysfun ction). Mild concentric left ventricular hypertrophy. Trace mitral valve regurgitation. Aortic valve sclerosis is present. There is trace tricuspid valve regurgitation. The estimated pulmonary arterial pressure is 35 mmHg. BP: 145 / 75 HR: 55 Rhythm: MEASUREMENTS (Male / Female) Normal Values Technical Quality:Good 2D ECHO LV Diastolic Diameter PLAX 4.1 cm 4.2 - 5.9 / 3.9 - 5.3 cm LV Systolic Diameter PLAX 3.3 cm IVS Diastolic Thickness 1.0 cm 0.6 - 1.0 / 0.6 - 0.9 cm LVPW Diastolic Thickness 1.1 cm 0.6 - 1.0 / 0.6 - 0.9 cm LV Relative Wall Thickness 0.5 RV Internal Dim ED PLAX 3.8 cm LVOT Diameter 2.1 cm Aortic Root Diameter 2.9 cm LA Systolic Diameter LX 3.0 cm 3.0 - 4.0 / 2.7 - 3.8 cm DOPPLER AV Peak Velocity 123.0 cm/s AV Peak Gradient 6.1 mmHg LVOT Peak Velocity 91.8 cm/s LVOT Peak Gradient 3.4 mmHg AV Area Cont Eq pk 2.6 cm Mitral E Point Velocity 54.3 cm/s Mitral A Point Velocity 97.7 cm/s Mitral E to A Ratio 0.6 LV E' Lateral Velocity 4.3 cm/s Mitral E to LV E' Lateral Ratio 12.7 LV E' Septal Velocity 5.1 cm/s Mitral E to LV E' Septal Ratio 10.7 TR Peak Velocity 251.0 cm/s TR Peak Gradient 25.2 mmHg Right Atrial Pressure 10.0 mmHg Pulmonary Artery Systolic Pressu 35.2 mmHg Right Ventricular Systolic Press 35.2 mmHg PV Peak Velocity 55.4 cm/s PV Peak Gradient 1.2 mmHg FINDINGS LEFT VENTRICLE Normal left ventricular size. The left ventricular systolic function is low normal with an estimated ejection fraction in the rang e of 50- 55%. No regional wall motion abnormalities are present. Doppler parameters are consistent with impaired left ventricular relaxtion (grade 1 diastolic dysfun ction). Mild concentric left ventricular hypertrophy. RIGHT VENTRICLE Normal right ventricular size and systolic function. LEFT ATRIUM The left atrial size is normal. RIGHT ATRIUM The right atrial size is normal. ATRIAL SEPTUM Normal atrial septal thickness without atrial level shunting by limited color doppler interrogation. AORTA The aortic root and proximal ascending aorta are normal in size on limited imaging. MITRAL VALVE Trace mitral valve regurgitation. AORTIC VALVE Trileaflet aortic valve. Aortic valve sclerosis is present. TRICUSPID VALVE There is trace tricuspid valve regurgitation. The estimated pulmonary arterial pressure is 35 mmHg. PULMONARY VALVE No pulmonary valve regurgitation or stenosis. VESSELS The inferior vena cava is normal in size. PERICARDIUM No pericardial effusion. Fernie Kirby MD, FACC (Electronically Signed) Final Date:11 May 2018 12:32
[2018-05-11 13:39] LABS: Hemoglobin A1c 13.9 % (4.3-6.0)
--- NOTE | 2018-05-11 15:24 | P.DCO ---
- Physical Therapy Order: Evaluate and treat, Improve ambulation, Strength and gait training - Home Health Nursing Order: Medical education, Signs/symptoms of disease process, Medication education-adverse effect, Nursing assessment with vital signs - Case Management Consult Case Management Consult-Home Health: Yes - Certification I have seen patient Santi Gordillo JR on 05/11/18. My clinical findings support the need for the requested home health care services because: Limited mobility due to disease progression, Deconditioned with increased weakness, Medication compliance is questionable, Limited ability to care for self, Need for psychosocial assistance, Impaired cognition/judgement, High risk of falls I certify that my clinical findings support that this patient is homebound because: Impaired cognitive ability/safety, Unsteady gait/balance, Unsafe to leave home unassisted, Need for psychosocial assistance, Non-ambulatory: confined to bed or chair, Unable to use public transportation
[2018-05-11] MEDS ORDERED: amLODIPine 10 MG Tablet PO ONE (15:36)
[2018-05-11] MEDS ORDERED: Enoxaparin Inj 30 MG/0.3 ML Syringe SQ SCH (18:00)
[2018-05-12] MEDS: Sod Chloride 0.9% Inj 1,000 ML IV.CONT SCH ×2 (00:32→08:36)
[2018-05-12 06:12] LABS: Hematocrit 46.4 % (39.0-51.0); Hemoglobin 15.4 gm/dL (13.0-17.0); Mean Corpuscular HGB Conc 33.3 % (32.0-36.0); Mean Corpuscular Hemoglobin 29.7 pg (27.0-34.0); Mean Corpuscular Volume 89.1 fL (80.0-100.0); Mean Platelet Volume 10.8 fL (7.0-11.0); Platelet Count 321 th/mm3 (150-450); Red Cell Distribution Width 13.6 % (11.6-17.2); White Blood Count 8.9 th/mm3 (4.0-11.0)
[2018-05-12 06:43] LABS: Calcium 9.3 mg/dL (8.5-10.1); Carbon Dioxide 28.1 meq/L (21.0-32.0); Potassium 3.8 meq/L (3.5-5.1)
[2018-05-12] MEDS: Insulin NovoLOG Aspart Correctional Sugar Inj SQ SCH (08:34)
[2018-05-12] MEDS: Aspirin 325 MG Tablet PO SCH (08:35)
[2018-05-12] MEDS: Loratadine 10 MG Tablet PO SCH (08:35)
[2018-05-12] MEDS: Metoprolol Tartrate 100 MG Tablet PO SCH (08:36)
[2018-05-12 08:40] VITALS: BP 130/63; PULSE 66; RESP 18; TEMP 97.9; O2SAT 99
[2018-05-12] MEDS ORDERED: amLODIPine 10 MG Tablet PO SCH (09:00)
--- NOTE | 2018-05-12 09:48 | P.PNFP ---
Subjective Interval history: Patient seen and examined today. Reports is feeling better today. No acute events overnight. He states that his right leg is back to his baseline weakness. He notes it is the same as it has been since recovery from his previous stroke. Patient denies nausea, vomiting, fever, chills, abdominal pain, chest pain, lightheadedness, dizziness, left arm or jaw pain, slurred speech, other weakness, generalized weakness, problems eating, changes in bowel or bladder habits. No other complaints today. <Tom Petersen - 05/12/18 10:10> Results - Labs Result diagrams: 05/12/18 04:26 05/12/18 04:26 <Hollis Edwards - 05/12/18 13:09> Abnormal lab results 05/11/18 05/11/18 05/11/18 Range/Units 03:40 17:34 19:58 BUN (7-18) mg/dL Creatinine (0.60-1.30) mg/dL Estimated GFR (>89) mL/min POC Glucose 417 H 213 H (68-110) mg/dl Hemoglobin A1c 13.9 H (4.3-6.0) % 05/12/18 Range/Units 04:26 BUN 30 H (7-18) mg/dL Creatinine 2.02 H (0.60-1.30) mg/dL Estimated GFR 39 L (>89) mL/min POC Glucose (68-110) mg/dl Hemoglobin A1c (4.3-6.0) % Short CBC 05/12/18 Range/Units 04:26 WBC 8.9 (4.0-11.0) th/mm3 Hgb 15.4 (13.0-17.0) gm/dL Hct 46.4 (39.0-51.0) % Plt Count 321 D (150-450) th/mm3 BMP 05/12/18 04:26 Sodium 137 Potassium 3.8 Chloride 102 Carbon Dioxide 28.1 BUN 30 H Creatinine 2.02 H Calcium 9.3 <Hollis Edwards R - 05/12/18 13:09> Abnormal lab results 05/11/18 05/11/18 05/11/18 Range/Units 03:40 12:32 17:34 BUN (7-18) mg/dL Creatinine (0.60-1.30) mg/dL Estimated GFR (>89) mL/min POC Glucose 220 H 417 H (68-110) mg/dl Hemoglobin A1c 13.9 H (4.3-6.0) % 05/11/18 05/12/18 Range/Units 19:58 04:26 BUN 30 H (7-18) mg/dL Creatinine 2.02 H (0.60-1.30) mg/dL Estimated GFR 39 L (>89) mL/min POC Glucose 213 H (68-110) mg/dl Hemoglobin A1c (4.3-6.0) % Short CBC 05/12/18 Range/Units 04:26 WBC 8.9 (4.0-11.0) th/mm3 Hgb 15.4 (13.0-17.0) gm/dL Hct 46.4 (39.0-51.0) % Plt Count 321 D (150-450) th/mm3 BMP 05/12/18 04:26 Sodium 137 Potassium 3.8 Chloride 102 Carbon Dioxide 28.1 BUN 30 H Creatinine 2.02 H Calcium 9.3 <Tom Petersen - 05/12/18 09:48> Physical Exam Vital signs: Vital Signs 05/11/18 13:15 05/11/18 16:00 05/11/18 17:46 Temperature 97.6 F 97.7 F Pulse Rate 61 66 Respiratory Rate 18 18 Blood Pressure 181/82 H 178/78 H Pulse Oximetry 98 98 98 05/11/18 20:00 05/12/18 00:00 05/12/18 03:28 Temperature 98.6 F 98.7 F 97.8 F Pulse Rate 66 61 65 Respiratory Rate 17 17 16 Blood Pressure 172/76 H 163/71 H 164/72 H Pulse Oximetry 98 98 05/12/18 08:00 05/12/18 09:41 Temperature 97.9 F Pulse Rate 66 Respiratory Rate 18 Blood Pressure 130/63 Pulse Oximetry 99 99 Intake & Output 05/11/18 05/12/18 05/12/18 18:59 06:59 18:59 Intake Total 1000 / 1000 1120 / 1120 300 / 300 Balance 1000 / 1000 1120 / 1120 300 / 300 Weight 66.4 kg 67.2 kg Intake: IV 1000 / 1000 1000 / 1000 300 / 300 NS Inj 1,000 ML @ 100 mls/hr IV 1000 / 1000 1000 / 1000 300 / 300 .CONT .Q10H [facility] Rx#:[id number] Oral 120 / 120 Other: # Voids 2 Date of Last Bowel Movement 05/09/18 05/09/18 # Bowel Movements 0 Weight On Admission 66.4 kg <Hollis Edwards R - 05/12/18 13:09> Vital Signs 05/11/18 09:51 05/11/18 13:15 05/11/18 16:00 Temperature 97.6 F 97.7 F Pulse Rate 57 L 61 66 Respiratory Rate 14 18 18 Blood Pressure 145/78 H 181/82 H 178/78 H Pulse Oximetry 98 98 98 05/11/18 17:46 05/11/18 20:00 05/12/18 00:00 Temperature 98.6 F 98.7 F Pulse Rate 66 61 Respiratory Rate 17 17 Blood Pressure 172/76 H 163/71 H Pulse Oximetry 98 98 98 05/12/18 03:28 05/12/18 08:00 05/12/18 09:41 Temperature 97.8 F 97.9 F Pulse Rate 65 66 Respiratory Rate 16 18 Blood Pressure 164/72 H 130/63 Pulse Oximetry 99 99 Intake & Output 05/11/18 05/12/18 05/12/18 18:59 06:59 18:59 Intake Total 1000 / 1000 1120 / 1120 300 / 300 Balance 1000 / 1000 1120 / 1120 300 / 300 Weight 66.4 kg 67.2 kg Intake: IV 1000 / 1000 1000 / 1000 300 / 300 NS Inj 1,000 ML @ 100 mls/hr IV 1000 / 1000 1000 / 1000 300 / 300 .CONT .Q10H [facility] Rx#:[id number] Oral 120 / 120 Other: # Voids 2 Date of Last Bowel Movement 05/09/18 05/09/18 # Bowel Movements 0 Weight On Admission 66.4 kg <Tom Petersen - 05/12/18 09:48> Narrative: GENERAL: Sitting up in bed, no acute distress SKIN: Warm and dry. HEAD: Atraumatic. Normocephalic. EYES: Pupils equal and round. No scleral icterus. No injection or drainage. ENT: No nasal bleeding or discharge. Mucous membranes pink and moist. NECK: Trachea midline. No JVD. CARDIOVASCULAR: Regular rate and rhythm. 2/6 murmur. RESPIRATORY: No accessory muscle use. Clear to auscultation. Breath sounds equal bilaterally. GASTROINTESTINAL: Abdomen soft, non-tender, nondistended. MUSCULOSKELETAL: Extremities without clubbing, cyanosis, or edema. No obvious deformities. NEUROLOGICAL: Awake and alert. CN II through XII intact. Motor grossly within normal limits. Five out of 5 muscle strength in the arms. 5/5 strength in left leg, 3/5 in right leg. Normal speech. <Tom Petersen A - 05/12/18 10:10> Assessment and Plan - Assessment (1) TIA (transient ischemic attack) Code(s): G45.9 - Transient cerebral ischemic attack, unspecified Status: Acute (2) Hypertensive urgency Code(s): I16.0 - Hypertensive urgency Status: Acute (3) Microscopic hematuria Code(s): R31.29 - Other microscopic hematuria Status: Acute (4) Diabetes Code(s): E11.9 - Type 2 diabetes mellitus without complications Status: Acute (5) Hypertension Code(s): I10 - Essential (primary) hypertension Status: Acute (6) Cognitive impairment Code(s): R41.89 - Other symptoms and signs involving cognitive functions and awareness Status: Acute <Hollis Edwards R - 05/12/18 13:09> (1) TIA (transient ischemic attack) Code(s): G45.9 - Transient cerebral ischemic attack, unspecified Status: Acute Plan: Patient presented with acute leg weakness which developed in the ER waiting room. Head CT negative. Mild left-sided carotid artery stenosis. Head CTA negative. Weakness is improving. -Follow-up head MRI was negative for an acute intracranial abnormality, only showed cerebral atrophy and chronic ischemic small vessel vasculopathy -Continue daily Aspirin -Continue Atorvastatin 40 mg -Seen by neurology -Cleared for discharge -Follow up in 1-2 weeks (2) Hypertensive urgency Code(s): I16.0 - Hypertensive urgency Status: Acute Plan: Patient presented with blood pressure 252/119. Was started on Cardene drip in ED. improved, last blood pressure normotensive. -Restarted home medications -Monitor closely (3) Microscopic hematuria Code(s): R31.29 - Other microscopic hematuria Status: Acute Plan: Microscopic hematuria an outpatient. Small occult blood on UA. -Consider abdominal CT versus renal ultrasound -Will defer management to PCP as outpatient (4) Diabetes Code(s): E11.9 - Type 2 diabetes mellitus without complications Status: Acute Plan: History of diabetes. Has not been taking diabetic medications. Is on Lantus 40 units HS at home -Restarted Levemir yesterday -Blood sugars have trended down to normal range -Pt's daughter states that he can go home with one of them to make sure that his medications are administered daily (5) Hypertension Code(s): I10 - Essential (primary) hypertension Status: Acute Plan: History of hypertension, see hypertensive urgency above. (6) Cognitive impairment Code(s): R41.89 - Other symptoms and signs involving cognitive functions and awareness Status: Acute Plan: History of dementia. -Continue Namenda <Tom Petersen - 05/12/18 10:06> - Attending Attestation This patient was seen and evaluated with the resident physician. I agree with the plan of care as discussed with me and documented in the resident note. Hollis Edwards MD <Hollis Edwards - 05/12/18 13:09>
--- NOTE | 2018-05-13 11:53 | P.DS ---
Date of admission: 05/10/18 15:24 Primary care physician: UNKNOWN Brief History from admission: Patient 78-year-old male past history of hypertension, diabetes, CVA, CKD, hyperlipidemia, dementia who presented to the ED for back pain and microscopic hematuria. This is reported to have been determined in his primary care's office. Interviewing patient he denies back pain. Reports he has never seen blood in his urine. Patient denies dysuria, increased frequency, loss of urine , cuts patient, diarrhea, dark or red stools, nausea, vomiting, fever, chills, don pain, chest pain, shortness of breath, lightheadedness, dizziness, jaw pain , numbness or tingling. He notes that while in the waiting room he noted weakness in his right leg. He states this has happened in the past with his previous stroke approximate 5-6 years ago. After his last stroke he regained approximate 75% strength in his leg, however he reports his leg is much weaker at this time. He denies any recent falls or trauma. Denies any other weakness, changes in vision, headache , slurred speech, decrease in sensation, difficulty swallowing. Is not taking any of his home medications Past medical: HTN Diabetes - was on insulin in the past CVA CKD HLD Dementia Past surgical: denies surgical history Social: Prior history of heavy drinking, quit drinking 15-20 years ago About 1 pack per week smoking history, stopped about 10 years ago Denies any other drug use DS: Diagnosis - Discharge Diagnosis (1) TIA (transient ischemic attack) Status: Acute (2) Hypertensive urgency Status: Acute (3) Microscopic hematuria Status: Acute (4) Diabetes Status: Acute (5) Hypertension Status: Acute (6) Cognitive impairment Status: Acute DS: Summary Hospital Course: Patient presented to hospital on 05/10/18 after being sent by his physician for elevated blood pressure, elevated glucose, microscopic hematuria. Patient had a presumed CVA in the waiting room with right leg weakness. Imaging was negative for acute CVA. Patient was hypertensive upon admission with a systolic into 250s. He reported he had not been taking any of his medications. Blood glucose was 379. Home medications were restarted, blood pressure normalized, blood sugar normalized. Prior to discharge he reported that his leg weakness had returned to the baseline residual weakness from his previous stroke. Patient discharged 05/12/18. - Time Spent with Patient Total time spent providing and/or coordinating discharge services: Greater than 30 minutes - Quality: VTE Deep Vein Thrombosis/Pulmonary Embolism Present on Admission: No Exam Vital signs: Intake & Output 05/12/18 05/13/18 05/13/18 18:59 06:59 18:59 Intake Total 300 / 300 Balance 300 / 300 Intake: IV 300 / 300 NS Inj 1,000 ML @ 100 mls/hr IV 300 / 300 .CONT .Q10H GABRIEL Rx#:[id number] Other: Date of Last Bowel Movement 05/09/18 Results Procedures completed during hospitalization: None - Impressions ITS Impressions Chest X-Ray 05/10/18 11:53 CONCLUSION: No acute disease Head CT 05/10/18 11:53 CONCLUSION: Negative CT Head non contrast. Report was called by [Clayton Soarse at 1210 ] Head CTA 05/10/18 12:07 CONCLUSION: No acute lummi of [place] vascular findings Report was called by [Clayton Guerrero ]at 1228 Neck CTA 05/10/18 12:07 CONCLUSION: Mild asymmetrically left-sided carotid stenosis. Head MRI 05/10/18 16:00 CONCLUSION: 1. Cerebral atrophy and chronic ischemic small vessel vasculopathy. 2. Right frontal and ethmoid sinus disease. 3. No acute intracranial abnormality. Discharge Plan - Discharge Disposition Patient Disposition: 01 Discharge Home - Discharge Condition Condition: Stable - Discharge Order Discharge Orders: Discharge Order (Routine); Ordered 05/12/18 Ordered By: Tom Petersen - Discharge Details Anticipated Discharge Date: 05/11/18 - Physicians Team Primary Care Provider: UNKNOWN, Attending Provider: Hollis Edwards Other Providers: Aki Higgins MD ; [employer],Insurance
== END 2018-05-12 10:55 | disposition home or self-care (01) ==
LOC: NEPE 09:54 → NEDA 15:24 → NEDH 20:45 → N04 05-11 13:13
PROVIDERS: ADMIT Family Medicine; ATTEND Family Medicine